=== PATIENT | male | born 1955 | race Caucasian/White ===

== ENCOUNTER 2025-02-26 01:26 | Inpatient (IN) ==
--- NOTE | 2025-02-26 01:40 | Emergency Department Note ---
History of Present Illness General Chief complaint: Altered Mental Status Stated complaint: AMS Time Seen by Provider: 02/26/25 01:28 History of Present Illness This is a 69-year-old male presenting to the emergency department via EMS for evaluation of altered mental status and violent behavior at home. The patient has a history of Lewy body dementia and prostate cancer with chronic indwelling Fontanez catheter. The patient is typically cared for at home by his brothers, however the past 5 or 6 days the patient has had more aggressive behavior and is attempting to remove his Fontanez catheter. Patient has not had distinct fevers or chills. He seems to be different from his normal baseline according to EMS and prehospital. Patient himself complains only of pain at the end of his penis where his catheter is. History is somewhat limited. No report of injury or trauma. Discomfort is rated 2/10 Home Medications Medication Instructions Recorded Confirmed Type famotidine 20 mg tablet (Pepcid) 20 mg PO BID PRN Heartburn 09/30/18 02/26/25 History omega 6-lxd-aiv-fish oil 1,000 mg 3 cap PO QAM 09/30/18 02/26/25 History (120 mg-180 mg) capsule (Fish Oil) polyethylene glycol 3350 17 gram 17 g PO DAILY PRN Constipation 09/30/18 02/26/25 History oral powder packet (Miralax) tamsulosin 0.4 mg capsule 0.4 mg PO DAILY 01/25/21 02/26/25 History pimavanserin 34 mg capsule 34 mg PO DAILY 10/28/24 02/26/25 History calcium 600 mg (as 1 tab PO QAM 01/29/25 02/26/25 History carbonate)-vitamin D3 10 mcg (400 unit) tablet (Calcium 600 + D(3)) psyllium husk 3.4 gram/5.4 gram 1 tbsp PO DAILY 02/01/25 02/26/25 History oral powder (Metamucil) melatonin 10 mg capsule 10 mg PO HS PRN Sleep 02/15/25 02/26/25 History leuprolide (3 month) 22.5 mg (3 22.5 mg subcut ONCE #1 ea 02/25/25 02/26/25 Rx month) subcutaneous syringe Allergies Allergy/AdvReac Type Severity Reaction Status Date / Time aspirin AdvReac Intermediate Nose Bleed Verified 02/22/25 10:28 naproxen AdvReac Intermediate BLEEDING Verified 02/22/25 10:28 FROM RECTUM Past Med/Surg History Problem List (Updated 02/26/25 @ 05:00 by Ronald Gibson MD) AMS (altered mental status) Irritation of urethral meatus (Acute) Disorder of urethral catheter (Acute) Dysuria Prostate cancer (Chronic 09/28/24) Elevated PSA BPH NOS w ur obs/LUTS COVID-19 Pneumonia due to COVID-19 virus GERD (gastroesophageal reflux disease) Hyperlipidemia Medical History BPH (benign prostatic hyperplasia) Surgical History H/O prostate biopsy History of cataract surgery LEFT. 10/07/2018. 2mg versed. no issues. Status post trigger finger release RT History of carpal tunnel release of both wrists History of colonoscopy Family History Father Family history of diabetes mellitus Mother Family history of diabetes mellitus Brother Cancer Prostate Social History Smoking Status: Former smoker Tobacco Type: Cigarettes and Smokeless Tobacco (Dip or Chew) Second Hand Exposure: No; Do You Dip or Chew Tobacco: No; Hx Alcohol Use: No Hx Substance Use: No Preferred Language: Pashto Communication Ability: Effective Visual Impairment: No Limitations Hearing Ability: Hard of Hearing Information Tech Required: No Beliefs That Will Affect Care: None marital status: Single Current Living Situation: Family Current Living Situation Comment: lives with brother Feels Safe at Home: Yes Diet: regular during the past year weight has: remained stable Assistive Devices: Hearing Aid - Bilateral Review of Systems A total of 10 systems reviewed and were otherwise negative (Somewhat limited secondary to patient's status.) Physical Exam Vital Signs Vital Signs - 24 hr 02/26/25 01:36 02/26/25 01:45 02/26/25 01:51 Temperature 36.6 C Temperature Source Oral Pulse Rate 80 73 73 Pulse Rate [Apical] Pulse Rate from SpO2 Sensor Pulse Rhythm [Apical] Pulse Strength [Apical] Respiratory Rate 18 18 Respiratory Effort / Characteristics Non-Labored Spontaneous Respiratory Depth Normal Blood Pressure 146/106 H Blood Pressure [Right Arm] Blood Pressure Mean 119 Blood Pressure Mean [Right Arm] Pulse Oximetry 97 100 Oxygen Delivery Method Room Air Room Air Sepsis Recent Fever Within 48 Hours No Sepsis New/Unexplained Change in Mental Status No Sepsis Action Taken by Nursing No Action Required 02/26/25 02:04 02/26/25 02:56 02/26/25 03:00 Temperature Temperature Source Pulse Rate 70 Pulse Rate [Apical] 72 Pulse Rate from SpO2 Sensor 69 Pulse Rhythm [Apical] Regular Pulse Strength [Apical] Normal Respiratory Rate 18 14 Respiratory Effort / Characteristics Respiratory Depth Normal Blood Pressure 141/91 H Blood Pressure [Right Arm] 149/92 H Blood Pressure Mean 107 Blood Pressure Mean [Right Arm] 111 Pulse Oximetry 100 95 Oxygen Delivery Method Room Air Room Air Sepsis Recent Fever Within 48 Hours Sepsis New/Unexplained Change in Mental Status Sepsis Action Taken by Nursing 02/26/25 04:02 Temperature Temperature Source Pulse Rate 74 Pulse Rate [Apical] Pulse Rate from SpO2 Sensor Pulse Rhythm [Apical] Pulse Strength [Apical] Respiratory Rate 18 Respiratory Effort / Characteristics Respiratory Depth Blood Pressure 122/86 Blood Pressure [Right Arm] Blood Pressure Mean 88 Blood Pressure Mean [Right Arm] Pulse Oximetry 96 Oxygen Delivery Method Sepsis Recent Fever Within 48 Hours Sepsis New/Unexplained Change in Mental Status Sepsis Action Taken by Nursing VITALS: Vitals are noted on the nurse's note and reviewed by myself. Vital signs stable. GENERAL: White male who is mildly agitated HEAD: Normocephalic atraumatic. NECK: Supple without nuchal rigidity. No lymphadenopathy. No thyromegaly. Cervical spine is nontender. HEART: Regular rate and rhythm without murmurs gallops or rubs. LUNGS: Clear to auscultation bilaterally without wheezes, rales or rhonchi. No retractions or accessory muscle use. ABDOMEN: Positive normal bowel sounds x 4. Soft, nontender, without masses or organomegaly. No guarding or rebound tenderness. MUSCULOSKELETAL: No muscle atrophy, erythema, or edema noted. Full range of motion in all extremities. No tenderness to palpation. NEURO: Patient was alert and oriented to person but not place or time Course Administered Medications Discontinued Medications Sodium Chloride (Nss) 1,000 mls @ 999 mls/hr IV .Q1H1M ONE Stop: 02/26/25 02:35 Last Infusion: 02/26/25 02:55 Dose: Infused Documented By: Admin: 02/26/25 01:54 Dose: 999 mls/hr Documented By: RAE Ceftriaxone Sodium (Rocephin) 2,000 mg in 50 mls @ 100 mls/hr IV NOW STA Stop: 02/26/25 04:00 Last Infusion: 02/26/25 04:36 Dose: Infused Documented By: Admin: 02/26/25 04:04 Dose: 100 mls/hr Documented By: SHANNON Lorazepam (Lorazepam 2 Mg/1 Ml Vial) 0.5 mg IV NOW STA Stop: 02/26/25 01:36 Last Admin: 02/26/25 02:28 Dose: 0.5 mg Documented By: LIZETH Medical Decision Making Differential Diagnosis Differential diagnosis: Etiologies such as viral syndrome, otitis, pharyngitis, pneumonia, influenza, meningitis, urinary tract infection, septic arthritis, soft tissue infectious process, intra-abdominal process, sepsis, bacteremia, as well as others were entertained. Laboratory Data 02/26/25 01:35 02/26/25 01:35 Lab Results 02/26/25 02/26/25 02/26/25 Range/Units 01:35 01:36 01:40 WBC 6.88 (4.8-10.8) K/ul RBC 4.24 L (4.70-6.10) M/uL Hgb 13.8 L (14.0-18.0) g/dl Hct 39.9 L (42.0-52.0) % MCV 94.1 (80.0-100.0) fL MCH 32.5 (25.0-34.0) pg MCHC 34.6 (32.0-36.0) g/dL RDW Std Deviation 43.3 (36.4-46.3) fL RDW Coeff of Keo 12.6 (11.5-14.5) % Plt Count 195 (130-400) K/uL MPV 9.1 L (9.4-12.4) fL Immature Gran % (Auto) 0.4 % Neut % (Auto) 74.9 % Lymph % (Auto) 8.7 % [place] % (Auto) 10.3 % Eos % (Auto) 4.8 % Baso % (Auto) 0.9 % Neut # (Auto) 5.15 (1.40-6.50) K/uL Lymph # (Auto) 0.60 L (1.20-3.40) K/uL [place] # (Auto) 0.71 H (0.11-0.59) K/uL Eos # (Auto) 0.33 (0.00-0.50) K/uL Baso # (Auto) 0.06 (0.00-0.20) K/uL Immature Gran # (Auto) 0.03 (0.01-0.20) K/uL Sodium 139 (136-145) mmol/L Potassium 4.2 (3.5-5.1) mmol/L Chloride 105 (98-107) mmol/L Carbon Dioxide 27 (21-32) mmol/L Anion Gap 7 (3-11) BUN 24 H (6-23) mg/dl Creatinine 1.16 (0.6-1.4) mg/dl Est Cr Clr Drug Dosing 70.7 ml/min eGFR 67.34 BUN/Creatinine Ratio 20.7 H (10-20) Glucose 108 H (70-99(Fasting)) mg/dl Lactate 1.1 (0.4-2.0) mmol/L Calcium 9.4 (8.6-10.3) mg/dl Magnesium 2.4 (1.7-2.4) mg/dl Total Bilirubin 0.5 (0.2-1.0) mg/dl AST 21 (13-39) U/L ALT 22 (7-52) U/L Alkaline Phosphatase 50 (34-104) U/L Ammonia (18-72) umol/L Troponin I High Sens 4.3 (0-20) pg/ml Total Protein 7.0 (6.0-8.3) gm/dl Albumin 4.1 (3.4-5.0) gm/dl Globulin 2.9 (2.5-4.0) gm/dl Albumin/Globulin Ratio 1.4 (0.9-2) Lipase 31 (11-82) U/L Urine Color Urine Appearance (Clear) Urine pH (4.5-7.5) Ur Specific [place] (1.000-1.030) Urine Protein (Negative) Urine Glucose (UA) (Negative) Urine Ketones (Negative) Urine Blood (Negative) Urine Nitrite (Negative) Urine Bilirubin (Negative) Urine Urobilinogen (Negative) Ur Leukocyte Esterase (Negative) Urine WBC (Auto) (0-5) /hpf Urine RBC (Auto) (0-2) /hpf U Hyaline Cast (Auto) (0-2) /lpf U Epithel Cells (Auto) (0-2) /hpf Urine Bacteria (Auto) (None Seen) Urine Comment Ethyl Alcohol mg/dL < 10.0 (<10.0) mg/dl 02/26/25 02/26/25 Range/Units 01:52 01:58 WBC (4.8-10.8) K/ul RBC (4.70-6.10) M/uL Hgb (14.0-18.0) g/dl Hct (42.0-52.0) % MCV (80.0-100.0) fL MCH (25.0-34.0) pg MCHC (32.0-36.0) g/dL RDW Std Deviation (36.4-46.3) fL RDW Coeff of Keo (11.5-14.5) % Plt Count (130-400) K/uL MPV (9.4-12.4) fL Immature Gran % (Auto) % Neut % (Auto) % Lymph % (Auto) % [place] % (Auto) % Eos % (Auto) % Baso % (Auto) % Neut # (Auto) (1.40-6.50) K/uL Lymph # (Auto) (1.20-3.40) K/uL [place] # (Auto) (0.11-0.59) K/uL Eos # (Auto) (0.00-0.50) K/uL Baso # (Auto) (0.00-0.20) K/uL Immature Gran # (Auto) (0.01-0.20) K/uL Sodium (136-145) mmol/L Potassium (3.5-5.1) mmol/L Chloride (98-107) mmol/L Carbon Dioxide (21-32) mmol/L Anion Gap (3-11) BUN (6-23) mg/dl Creatinine (0.6-1.4) mg/dl Est Cr Clr Drug Dosing ml/min eGFR BUN/Creatinine Ratio (10-20) Glucose (70-99(Fasting)) mg/dl Lactate (0.4-2.0) mmol/L Calcium (8.6-10.3) mg/dl Magnesium (1.7-2.4) mg/dl Total Bilirubin (0.2-1.0) mg/dl AST (13-39) U/L ALT (7-52) U/L Alkaline Phosphatase (34-104) U/L Ammonia 29.0 (18-72) umol/L Troponin I High Sens (0-20) pg/ml Total Protein (6.0-8.3) gm/dl Albumin (3.4-5.0) gm/dl Globulin (2.5-4.0) gm/dl Albumin/Globulin Ratio (0.9-2) Lipase (11-82) U/L Urine Color [place] Urine Appearance Cloudy A (Clear) Urine pH 6.5 (4.5-7.5) Ur Specific [place] 1.017 (1.000-1.030) Urine Protein 3+ H (Negative) Urine Glucose (UA) Negative (Negative) Urine Ketones Negative (Negative) Urine Blood 3+ H (Negative) Urine Nitrite Negative (Negative) Urine Bilirubin Negative (Negative) Urine Urobilinogen Negative (Negative) Ur Leukocyte Esterase 2+ H (Negative) Urine WBC (Auto) >50 H (0-5) /hpf Urine RBC (Auto) >20 H (0-2) /hpf U Hyaline Cast (Auto) 3-5 H (0-2) /lpf U Epithel Cells (Auto) 0-2 (0-2) /hpf Urine Bacteria (Auto) None Seen (None Seen) Urine Comment Ethyl Alcohol mg/dL (<10.0) mg/dl MDM Narrative Physical exam and history were performed. Nursing notes, EMR, and Medication List were personally reviewed. No social concerns were identified as barriers to patients care. History was provided by the Patient, EMS, and family who did ultimately arrive at bedside. Patient appears to have altered mental status in the context of having a chronic indwelling Fontanez catheter with baseline dementia. Patient is somewhat agitated on arrival. He does attempt to answer questions, however he does not give answers with any meaning. IV access was established and labs were obtained. Patient was given a small dose of IV Ativan and IV fluids. We did exchange his Fontanez catheter and sent a new urine sample from the new Fontanez bag to the lab for testing. Patient's blood work is as above and was reviewed. He does not have a significantly elevated white blood cell count, gross anemia, bandemia, or significant electrolyte imbalance. Lipase and transaminases not diagnostic. Magnesium and ammonia are not diagnostic. Urine is highly suggestive of infection. I did review old cultures and previous antibiotic use, and will start the patient on IV Rocephin here in the ER. Escalation of care was considered, and felt to be necessary. Case was discussed with my attending. The patient's family did arrive at bedside, and they seem to describe some worsening dementia symptoms over the past several days. This may be from the UTI, and they are having difficulty with him at home. Case was discussed with the on-call hospitalist team who agreed to evaluate the patient here in the ER. Please see their dictation for further patient course, plan, disposition. The chart was completed utilizing [employer] Speech Voice Recognition Software. Grammatical errors, random word insertions, pronoun errors, and incomplete sentences are an occasional consequence of this system due to software limitations, ambient noise, and hardware issues. Any formal questions or concerns about the content, text, or information contained within the body of this dictation should be directly addressed to the provider for clarification. Impression & Plan AMS (altered mental status), Acute UTI Discharge Plan Visit Data Chief Complaint: Altered Mental Status Stated Complaint: AMS ED Provider: Ga Woodward ED Midlevel Provider: Mickey Joaquin Discharge Problem: AMS (altered mental status), Acute UTI Patient Disposition: Being Evaluated by Hospitalist Condition: Fair Forms Stand Alone Forms: My [facility] Prescriptions Prescriptions: No Action pimavanserin 34 mg capsule 34 mg PO DAILY leuprolide (3 month) 22.5 mg syringe 22.5 mg subcut ONCE Qty: 1 0RF Rx Instructions: C61. Appt on 03/09/25 Metamucil 3.4 gram/5.4 gram powder 1 tbsp PO DAILY Rx Instructions: mix into at least 8 oz of water or juice before administering melatonin 10 mg capsule 10 mg PO HS PRN (Reason: Sleep) polyethylene glycol 3350 [Miralax] 17 gram Powder In Packet 17 g PO DAILY PRN (Reason: Constipation) famotidine [Pepcid] 20 mg Tablet 20 mg PO BID PRN (Reason: Heartburn) omega 1-jwi-ahv-fish oil [Fish Oil] 1,000 mg (120 mg-180 mg) Capsule 3 cap PO QAM tamsulosin 0.4 mg capsule 0.4 mg PO DAILY calcium carbonate-vitamin D3 [Calcium 600 + D(3)] 600 mg-10 mcg (400 unit) Tablet 1 tab PO QAM Referrals Referrals: Chema Lackey MD [Primary Care Provider] -
[2025-02-26] MEDS: SODIUM CHLORIDE 0.9% 1,000 ML IV ONE (01:54)
[2025-02-26 01:55] LABS: Hematocrit (blood only) 39.9 % (42.0-52.0); Hemoglobin 13.8 g/dl (14.0-18.0); Immature Granulocytes # (auto) 0.03 K/uL (0.01-0.20); Immature Granulocytes % (auto) 0.4 %; Mean Corpuscular Hemoglobin 32.5 pg (25.0-34.0); Mean Corpuscular Volume 94.1 fL (80.0-100.0); Platelet Count 195 K/uL (130-400); RDW Standard Deviation 43.3 fL (36.4-46.3); Red Blood Count 4.24 M/uL (4.70-6.10); White Blood Count 6.88 K/ul (4.8-10.8)
[2025-02-26 02:14] LABS: Alanine Aminotransferase 22.0 U/L (7-52); Albumin Globulin Ratio 1.4 (0.9-2); Alkaline Phosphatase 50.0 U/L (34-104); Anion Gap 7.0 (3-11); Bilirubin,Total 0.5 mg/dl (0.2-1.0); Blood Urea Nitrogen 24.0 mg/dl (6-23); Calcium 9.4 mg/dl (8.6-10.3); Carbon Dioxide 27.0 mmol/L (21-32); Chloride 105.0 mmol/L (98-107); Creatinine Clr Calc Pharmacy 70.7 ml/min; Globulin 2.9 gm/dl (2.5-4.0); Glucose 108.0 mg/dl (70-99(Fasting)); Lipase 31.0 U/L (11-82); Magnesium 2.4 mg/dl (1.7-2.4); Potassium 4.2 mmol/L (3.5-5.1); Sodium 139.0 mmol/L (136-145); Total Protein 7.0 gm/dl (6.0-8.3)
[2025-02-26 03:25] LABS: Appearance Urine Cloudy (Clear); Bacteria Urine Automated None Seen (None Seen); Epithelial Cell Urine Auto 0-2 /hpf (0-2); Glucose Urine UA Negative (Negative); RBC Urine Automated >20 /hpf (0-2); WBC Urine Automated >50 /hpf (0-5)
[2025-02-26] MEDS: cefTRIAXone SODIUM 2,000 MG/50 ML BAG IV STA (04:04)
--- NOTE | 2025-02-26 04:55 | History & Physical Report ---
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 Patient was diagnosed with prostate cancer and completed radiation treatment last Saturday as per brother. As per brother patient for last 6 days was not sleeping. Patient is trying to to get up from the bed frequently and trying to pull out the Fontanez catheter . Somewhat getting agitated. This reason patient was brought to the ER. In the ER received IV Ativan. Currently patient is pleasant. Patient knows that he is in the [facility]. Knows current month and year. Could tell his name. Two brothers in the room. Brother says when the patient is with them he gets agitated and angry but in the the hospital he seems to be calmer now. No recent fevers. His appetite is okay. Patient denies any chest pain. Denies abdominal pain. Denies back pain. Denies headache. No runny nose or sore throat. No nausea. Fontanez catheter bag somewhat pink-colored. Brother says sometimes he passes clots in the urine but urine mostly is yellow or clear. Ambulates wit hout support. Hemodynamics are okay. Altered mental status Most from UTI Empiric Rocephin Will follow cultures Gentle fluids for 1 L Severe Lewy body dementia with psychotic disturbance At home patient seems to getting agitated Currently pleasant and oriented x 3 Continues home medication pimavanserin IV Zyprexa as needed for agitation Prostate cancer Follows with urology Completed radiation treatment On Lupron shots On Flomax On Fontanez catheter Fontanez care Slightly pinkish color urine If not cleared will consult urology Obstructive sleep apnea Not using CPAP History of hypertension Seems currently not on meds We will monitor Constipation On Metamucil MiraLAX as needed DVT prophylaxis Lovenox Disposition Medical floor CODE STATUS DNR as per brother but he thinks he wanted to try for 24 hours. Will keep full code for now Addendum; Later again patient was ordered Ativan by Er. As he was still agitated gave a dose of im zyprexa 2.5mg. 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 Patient was diagnosed with prostate cancer and completed radiation treatment last Saturday as per brother. As per brother patient for last 6 days was not sleeping. Patient is trying to to get up from the bed frequently and trying to pull out the Fontanez catheter . Somewhat getting agitated. This reason patient was brought to the ER. In the ER received IV Ativan. Currently patient is pleasant. Patient knows that he is in the [facility]. Knows current month and year. Could tell his name. Two brothers in the room. Brother says when the patient is with them he gets agitated and angry but in the the hospital he seems to be calmer now. No recent fevers. His appetite is okay. Patient denies any chest pain. Denies abdominal pain. Denies back pain. Denies headache. No runny nose or sore throat. No nausea. Fontanez catheter bag somewhat pink-colored. Brother says sometimes he passes clots in the urine but urine mostly is yellow or clear. Ambulates without support. Hemodynamics are okay. Past medical history. As mentioned above. Past surgical history. Carpal tunnel surgery. Colonoscopy. Social history. Quit smoking in 1995. Quit alcohol 1995. No drug use. Family history. Mother had lung cancer. Diabetes. CABG. Brother had myotonic dystrophy. Sister had myotonic dystrophy. Father had stroke. Diabetes. Maternal grandfather had diabetes. Maternal grandmother had diabetes. Allergies Allergy/AdvReac Type Severity Reaction Status Date / Time aspirin AdvReac Intermediate Nose Bleed Verified 02/22/25 10:28 naproxen AdvReac Intermediate BLEEDING Verified 02/22/25 10:28 FROM RECTUM Home Medications Medication Instructions Recorded Confirmed Type famotidine 20 mg tablet (Pepcid) 20 mg PO BID PRN Heartburn 09/30/18 02/26/25 History omega 2-nmh-ymi-fish oil 1,000 mg 3 cap PO QAM 09/30/18 02/26/25 History (120 mg-180 mg) capsule (Fish Oil) polyethylene glycol 3350 17 gram 17 g PO DAILY PRN Constipation 09/30/18 02/26/25 History oral powder packet (Miralax) tamsulosin 0.4 mg capsule 0.4 mg PO DAILY 01/25/21 02/26/25 History pimavanserin 34 mg capsule 34 mg PO DAILY 10/28/24 02/26/25 History calcium 600 mg (as 1 tab PO QAM 01/29/25 02/26/25 History carbonate)-vitamin D3 10 mcg (400 unit) tablet (Calcium 600 + D(3)) psyllium husk 3.4 gram/5.4 gram 1 tbsp PO DAILY 02/01/25 02/26/25 History oral powder (Metamucil) melatonin 10 mg capsule 10 mg PO HS PRN Sleep 02/15/25 02/26/25 History leuprolide (3 month) 22.5 mg (3 22.5 mg subcut ONCE #1 ea 02/25/25 02/26/25 Rx month) subcutaneous syringe Past Med/Surg History Problem List (Updated 02/26/25 @ 05:00 by Ronald Gibson MD) AMS (altered mental status) Irritation of urethral meatus (Acute) Disorder of urethral catheter (Acute) Dysuria Prostate cancer (Chronic 09/28/24) Elevated PSA BPH NOS w ur obs/LUTS COVID-19 Pneumonia due to COVID-19 virus GERD (gastroesophageal reflux disease) Hyperlipidemia Medical History BPH (benign prostatic hyperplasia) Surgical History H/O prostate biopsy History of cataract surgery LEFT. 10/07/2018. 2mg versed. no issues. Status post trigger finger release RT History of carpal tunnel release of both wrists History of colonoscopy Family History Father Family history of diabetes mellitus Mother Family history of diabetes mellitus Brother Cancer Prostate Social History Smoking Status: Former smoker Tobacco Type: Cigarettes and Smokeless Tobacco (Dip or Chew) Second Hand Exposure: No; Do You Dip or Chew Tobacco: No; Hx Alcohol Use: No Hx Substance Use: No Preferred Language: Sammarinese Communication Ability: Effective Visual Impairment: No Limitations Hearing Ability: Hard of Hearing Athletic Training Internship Required: No Beliefs That Will Affect Care: None marital status: Single Current Living Situation: Family Current Living Situation Comment: lives with brother Feels Safe at Home: Yes Diet: regular during the past year weight has: remained stable Assistive Devices: Hearing Aid - Bilateral Review of Systems Review of Systems: All systems reviewed & are unremarkable except as noted in HPI & below Physical Exam Physical Exam: General- Not in distress Head- atraumatic Eyes- PERRL. ENT- oropharynx clear Neck- supple, no JVD. Lungs- clear to auscultation no wheezing or crackles. Heart- regular rhythm; no murmur, no gallop. Abdomen- normal bowel sounds, soft, nontender, no distension Extremities- no pretibial edema, no erythema seen Neuro- alert, oriented x 3; PERRL, no facial palsy; no dysarthria; moves extremities Results & Data Results & Data Vital Signs (Past 12 Hours) Vital Signs Temp Pulse Pulse Resp BP BP Pulse Ox 02/26/25 04:02 74 18 122/86 96 02/26/25 03:00 70 14 141/91 H 95 02/26/25 02:56 72 18 149/92 H 100 02/26/25 02:04 02/26/25 01:51 73 18 100 02/26/25 01:45 36.6 C 73 18 146/106 H 97 02/26/25 01:36 80 O2 Del Method 02/26/25 04:02 02/26/25 03:00 02/26/25 02:56 Room Air 02/26/25 02:04 Room Air 02/26/25 01:51 Room Air 02/26/25 01:45 Room Air 02/26/25 01:36 Diagnostic Findings Laboratory Results WBC 6.88 K/ul (4.8-10.8) 02/26/25 01:35 RBC 4.24 M/uL (4.70-6.10) L 02/26/25 01:35 Hgb 13.8 g/dl (14.0-18.0) L 02/26/25 01:35 Hct 39.9 % (42.0-52.0) L 02/26/25 01:35 MCV 94.1 fL (80.0-100.0) 02/26/25 01:35 MCH 32.5 pg (25.0-34.0) 02/26/25 01:35 MCHC 34.6 g/dL (32.0-36.0) 02/26/25 01:35 RDW Std Deviation 43.3 fL (36.4-46.3) 02/26/25 01:35 RDW Coeff of Keo 12.6 % (11.5-14.5) 02/26/25 01:35 Plt Count 195 K/uL (130-400) 02/26/25 01:35 MPV 9.1 fL (9.4-12.4) L 02/26/25 01:35 Immature Gran % (Auto) 0.4 % 02/26/25 01:35 Neut % (Auto) 74.9 % 02/26/25 01:35 Lymph % (Auto) 8.7 % 02/26/25 01:35 [place] % (Auto) 10.3 % 02/26/25 01:35 Eos % (Auto) 4.8 % 02/26/25 01:35 Baso % (Auto) 0.9 % 02/26/25 01:35 Neut # (Auto) 5.15 K/uL (1.40-6.50) 02/26/25 01:35 Lymph # (Auto) 0.60 K/uL (1.20-3.40) L 02/26/25 01:35 [place] # (Auto) 0.71 K/uL (0.11-0.59) H 02/26/25 01:35 Eos # (Auto) 0.33 K/uL (0.00-0.50) 02/26/25 01:35 Baso # (Auto) 0.06 K/uL (0.00-0.20) 02/26/25 01:35 Immature Gran # (Auto) 0.03 K/uL (0.01-0.20) 02/26/25 01:35 Sodium 139 mmol/L (136-145) 02/26/25 01:35 Potassium 4.2 mmol/L (3.5-5.1) 02/26/25 01:35 Chloride 105 mmol/L (98-107) 02/26/25 01:35 Carbon Dioxide 27 mmol/L (21-32) 02/26/25 01:35 Anion Gap 7 (3-11) 02/26/25 01:35 BUN 24 mg/dl (6-23) H 02/26/25 01:35 Creatinine 1.16 mg/dl (0.6-1.4) 02/26/25 01:35 Est Cr Clr Drug Dosing 70.7 ml/min 02/26/25 01:35 eGFR 67.34 02/26/25 01:35 BUN/Creatinine Ratio 20.7 (10-20) H 02/26/25 01:35 Glucose 108 mg/dl (70-99(Fasting)) H 02/26/25 01:35 Lactate 1.1 mmol/L (0.4-2.0) 02/26/25 01:40 Calcium 9.4 mg/dl (8.6-10.3) 02/26/25 01:35 Magnesium 2.4 mg/dl (1.7-2.4) 02/26/25 01:35 Total Bilirubin 0.5 mg/dl (0.2-1.0) 02/26/25 01:35 AST 21 U/L (13-39) 02/26/25 01:35 ALT 22 U/L (7-52) 02/26/25 01:35 Alkaline Phosphatase 50 U/L (34-104) 02/26/25 01:35 Ammonia 29.0 umol/L (18-72) 02/26/25 01:58 Troponin I High Sens 4.3 pg/ml (0-20) 02/26/25 01:35 Total Protein 7.0 gm/dl (6.0-8.3) 02/26/25 01:35 Albumin 4.1 gm/dl (3.4-5.0) 02/26/25 01:35 Globulin 2.9 gm/dl (2.5-4.0) 02/26/25 01:35 Albumin/Globulin Ratio 1.4 (0.9-2) 02/26/25 01:35 Lipase 31 U/L (11-82) 02/26/25 01:35 Urine Color [place] 02/26/25 01:52 Urine Appearance Cloudy (Clear) A 02/26/25 01:52 Urine pH 6.5 (4.5-7.5) 02/26/25 01:52 Ur Specific [place] 1.017 (1.000-1.030) 02/26/25 01:52 Urine Protein 3+ (Negative) H 02/26/25 01:52 Urine Glucose (UA) Negative (Negative) 02/26/25 01:52 Urine Ketones Negative (Negative) 02/26/25 01:52 Urine Blood 3+ (Negative) H 02/26/25 01:52 Urine Nitrite Negative (Negative) 02/26/25 01:52 Urine Bilirubin Negative (Negative) 02/26/25 01:52 Urine Urobilinogen Negative (Negative) 02/26/25 01:52 Ur Leukocyte Esterase 2+ (Negative) H 02/26/25 01:52 Urine WBC (Auto) >50 /hpf (0-5) H 02/26/25 01:52 Urine RBC (Auto) >20 /hpf (0-2) H 02/26/25 01:52 U Hyaline Cast (Auto) 3-5 /lpf (0-2) H 02/26/25 01:52 U Epithel Cells (Auto) 0-2 /hpf (0-2) 02/26/25 01:52 Urine Bacteria (Auto) None Seen (None Seen) 02/26/25 01:52 Urine Comment 02/26/25 01:52 Ethyl Alcohol mg/dL < 10.0 mg/dl (<10.0) 02/26/25 01:36 ECG Additional Comments: ECG. Normal sinus rhythm rate of 73. No significant change was found. Code Status & VTE Plan VTE Prophylaxis Plan VTE Prophylaxis will be ordered: Yes
[2025-02-26 09:13] LABS: Hematocrit (blood only) 40.2 % (42.0-52.0); Hemoglobin 13.9 g/dl (14.0-18.0); Immature Granulocytes # (auto) 0.03 K/uL (0.01-0.20); Immature Granulocytes % (auto) 0.4 %; Mean Corpuscular Hemoglobin 32.6 pg (25.0-34.0); Mean Corpuscular Volume 94.1 fL (80.0-100.0); Platelet Count 189 K/uL (130-400); RDW Standard Deviation 42.8 fL (36.4-46.3); Red Blood Count 4.27 M/uL (4.70-6.10); White Blood Count 8.36 K/ul (4.8-10.8)
[2025-02-26 09:28] LABS: Anion Gap 6.0 (3-11); Blood Urea Nitrogen 17.0 mg/dl (6-23); Calcium 8.8 mg/dl (8.6-10.3); Carbon Dioxide 28.0 mmol/L (21-32); Chloride 108.0 mmol/L (98-107); Creatinine Clr Calc Pharmacy 91.2 ml/min; Glucose 103.0 mg/dl (70-99(Fasting)); Magnesium 2.2 mg/dl (1.7-2.4); Potassium 3.8 mmol/L (3.5-5.1); Sodium 142.0 mmol/L (136-145)
[2025-02-26] MEDS: SODIUM CHLORIDE 0.9% 1,000 ML IV SCH (09:42)
[2025-02-26] MEDS: PIMAVANSERIN TARTRATE PO SCH (09:43)
[2025-02-26] MEDS: TAMSULOSIN HCL 0.4 MG CAP PO SCH (09:43)
[2025-02-26] MEDS: CALCIUM 600MG + VIT D 400 IU TAB PO SCH (09:43)
[2025-02-26] MEDS: PSYLLIUM HUSK 4GM PACKET PO SCH (10:40)
--- NOTE | 2025-02-26 15:58 | Communication Note ---
Date of Service: February 26, 2025 The patient was seen and examined in emergency room. He was admitted with change in mental status likely secondary to UTI and is complicated by dementia and also prostate cancer with in situ Fontanez catheter status. He required IM Zyprexa and also dose of Ativan in the emergency room and during my examination remained confused. Remains hemodynamically stable and is afebrile with unremarkable systemic examination. Will have full progress note tomorrow. Dr Mariela Cesar
[2025-02-26] MEDS: ACETAMINOPHEN 325 MG TAB PO PRN (21:20)
[2025-02-26] MEDS: MELATONIN 3 MG TAB PO PRN (21:20)
--- NOTE | 2025-02-26 22:46 | Electrocardiogram Report ---
Test Reason : Blood Pressure : */* mmHG Vent. Rate : 73 BPM Atrial Rate : 73 BPM P-R Int : 186 ms QRS Dur : 84 ms QT Int : 400 ms P-R-T Axes : 76 11 46 degrees QTcB Int : 440 ms Normal sinus rhythm Normal ECG When compared with ECG of 25-Jan-2021 21:09, No significant change was found Confirmed by Hong Carlson ([id number]) on 02/26/2025 10:45:56 PM Referred By: REFERRED SELF Confirmed By: Hong Carlson
[2025-02-27] MEDS: cefTRIAXone SODIUM 2,000 MG/50 ML BAG IV SCH (03:01)
[2025-02-27 08:11] LABS: Hematocrit (blood only) 41.3 % (42.0-52.0); Hemoglobin 14.6 g/dl (14.0-18.0); Immature Granulocytes # (auto) 0.03 K/uL (0.01-0.20); Immature Granulocytes % (auto) 0.4 %; Mean Corpuscular Hemoglobin 32.8 pg (25.0-34.0); Mean Corpuscular Volume 92.8 fL (80.0-100.0); Platelet Count 206 K/uL (130-400); RDW Standard Deviation 41.9 fL (36.4-46.3); Red Blood Count 4.45 M/uL (4.70-6.10); White Blood Count 7.23 K/ul (4.8-10.8)
[2025-02-27 08:26] LABS: Anion Gap 7.0 (3-11); Blood Urea Nitrogen 14.0 mg/dl (6-23); Calcium 9.1 mg/dl (8.6-10.3); Carbon Dioxide 25.0 mmol/L (21-32); Chloride 107.0 mmol/L (98-107); Creatinine Clr Calc Pharmacy 97.7 ml/min; Glucose 106.0 mg/dl (70-99(Fasting)); Potassium 3.9 mmol/L (3.5-5.1); Sodium 139.0 mmol/L (136-145)
--- NOTE | 2025-02-27 14:49 | Hospitalist Progress Note ---
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 Patient was diagnosed with prostate cancer and completed radiation treatment last Saturday as per brother. As per brother patient for last 6 days was not sleeping. Patient is trying to to get up from the bed frequently and trying to pull out the Fontanez catheter . Somewhat getting agitated. This reason patient was brought to the ER. In the ER received IV Ativan. Currently patient is pleasant. Patient knows that he is in the [facility]. Knows current month and year. Could tell his name. Two brothers in the room. Brother says when the patient is with them he gets agitated and angry but in the the hospital he seems to be calmer now. No recent fevers. His appetite is okay. Patient denies any chest pain. Denies abdominal pain. Denies back pain. Denies headache. No runny nose or sore throat. No nausea. Fontanez catheter bag somewhat pink-colored. Brother says sometimes he passes clots in the urine but urine mostly is yellow or clear. Ambulates wit hout support. Hemodynamics are okay. Altered mental status Most from UTI complicated by lack of sleep for the last 6 days and possible injury to the Fontanez Empiric Rocephin Will follow cultures-urine culture is growing Staphylococcus aureus likely contaminant Will continue IV Rocephin for about 3 days Gentle fluids for 1 L Clinically better with decreasing agitation and remains pleasantly confused Severe Lewy body dementia with psychotic disturbance At home patient seems to getting agitated Currently pleasant and oriented x 3 Continues home medication pimavanserin IV Zyprexa as needed for agitation No more agitation Prostate cancer Follows with urology Completed radiation treatment On Lupron shots On Flomax On Fontanez catheter Fontanez care Slightly pinkish color urine If not cleared will consult urology-urine is clearing up and the patient was advised to drink more fluid Obstructive sleep apnea Not using CPAP No shortness of breath at rest History of hypertension Seems currently not on meds We will monitor Constipation On Metamucil MiraLAX as needed DVT prophylaxis Lovenox Disposition Medical floor CODE STATUS DNR as per brother but he thinks he wanted to try for 24 hours. Wi ll keep full code for now Admission and Anticipated Discharge Date Admission Date: February 26, 2025 Subjective 02/27/2025 The patient was seen and examined in medical floor He remains pleasantly confused but does not have any agitation as was noted yesterday Bed without any acute distress Review of Systems Review of Systems: Unobtainable due to cognitive status Physical Exam Physical Exam: Lying in bed without any acute distress remains pleasantly confused Constitutional: well developed, well nourished, + ill appearing and + obese Eyes: PERRL, conjunctivae normal, anicteric sclerae ENMT: external ear and nose normal, oropharynx normal Neck: trachea midline, no thyromegaly Respiratory: no respiratory distress Auscultation: lungs clear to auscultation bilaterally Cardiovascular: Rate/Rhythm: regular rate and regular rhythm; not tachycardic Heart Sounds: normal S1 and normal S2; no murmur Extremities: + edema (Trace edema bilaterally) Gastrointestinal (Abdomen): Inspection/Auscultation: normal bowel sounds; abdomen not distended Percussion/Palpation: abdomen soft; abdomen nontender Musculoskeletal: No acute arthritis involving any of the joint Neurologic: normal touch/pain/proprioception and moves all extremities; no focal motor deficits Lymphatic: no cervical or axillary lymphadenopathy Results & Data Results & Data Vital Signs (Past 12 Hours) Vital Signs Temp Pulse Resp BP Pulse Ox O2 Del Method 02/27/25 08:18 36.6 C 68 18 149/88 H 95 Room Air Laboratory Results Short CBC 02/27/25 Range/Units 07:38 WBC 7.23 (4.8-10.8) K/ul Hgb 14.6 (14.0-18.0) g/dl Hct 41.3 L (42.0-52.0) % Plt Count 206 (130-400) K/uL BMP 02/27/25 07:38 Sodium 139 Potassium 3.9 Chloride 107 Carbon Dioxide 25 BUN 14 Creatinine 0.84 Glucose 106 H Calcium 9.1 Medications Administered Current Inpatient Medications Acetaminophen (Acetaminophen 325 Mg Tab) 650 mg PO Q4H PRN PRN Reason: pain/fever Stop: 03/28/25 08:56 Last Admin: 02/27/25 14:01 Dose: 650 mg Calcium/Vitamin D (Calcium 600mg + Vit D 400 Iu Tab) 1 tab PO QAM EUGENE Stop: 03/28/25 08:59 Last Admin: 02/27/25 11:15 Dose: 1 tab Famotidine (Famotidine 20 Mg Tab) 20 mg PO BID PRN PRN Reason: Heartburn Stop: 03/28/25 08:56 Ceftriaxone Sodium (Rocephin) 2,000 mg in 50 mls @ 100 mls/hr IV Q24H EUGENE Stop: 03/09/25 03:59 Last Infusion: 02/27/25 03:31 Dose: Infused Melatonin (Melatonin 3 Mg Tab) 9 mg PO HSZ PRN PRN Reason: Sleep Stop: 03/28/25 09:08 Last Admin: 02/26/25 21:20 Dose: 9 mg Olanzapine (Olanzapine 10 Mg/2.1 Ml Sdv) 2.5 mg IM Q4H PRN PRN Reason: Agitation Stop: 03/28/25 08:56 Last Admin: 02/27/25 01:03 Dose: 2.5 mg Pimavanserin ( Non Formulary Pimavanserin Tartrate) 1 each PO DAILY EUGENE Stop: 03/28/25 09:29 Last Admin: 02/27/25 11:15 Dose: 1 each Polyethylene Glycol (Polyethylene (Miralax) 17 Gm Pack) 17 gm PO DAILY PRN PRN Reason: Constipation Stop: 03/28/25 08:56 Psyllium Hydrophilic Mucilloid (Psyllium Husk 4gm Packet) 4 gm PO DAILY EUGENE Stop: 03/28/25 09:14 Last Admin: 02/27/25 11:15 Dose: 4 gm Tamsulosin HCl (Tamsulosin Hcl 0.4 Mg Cap) 0.4 mg PO DAILY EUGENE Stop: 03/28/25 08:59 Last Admin: 02/27/25 11:15 Dose: 0.4 mg
[2025-02-28 06:13] LABS: Hematocrit (blood only) 42.6 % (42.0-52.0); Hemoglobin 14.5 g/dl (14.0-18.0); Immature Granulocytes # (auto) 0.02 K/uL (0.01-0.20); Immature Granulocytes % (auto) 0.3 %; Mean Corpuscular Hemoglobin 32.4 pg (25.0-34.0); Mean Corpuscular Volume 95.3 fL (80.0-100.0); Platelet Count 216 K/uL (130-400); RDW Standard Deviation 43.2 fL (36.4-46.3); Red Blood Count 4.47 M/uL (4.70-6.10); White Blood Count 7.09 K/ul (4.8-10.8)
[2025-02-28 06:34] LABS: Anion Gap 7.0 (3-11); Blood Urea Nitrogen 19.0 mg/dl (6-23); Calcium 9.3 mg/dl (8.6-10.3); Carbon Dioxide 28.0 mmol/L (21-32); Chloride 104.0 mmol/L (98-107); Creatinine Clr Calc Pharmacy 94.3 ml/min; Glucose 112.0 mg/dl (70-99(Fasting)); Magnesium 2.3 mg/dl (1.7-2.4); Potassium 3.8 mmol/L (3.5-5.1); Sodium 139.0 mmol/L (136-145)
[2025-02-28] MEDS: SULFAMETHOXAZOLE/TRIMETHOPRIM DS 800/160MG TAB PO ONE (11:25)
--- NOTE | 2025-02-28 13:51 | Hospitalist Progress Note ---
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 Patient was diagnosed with prostate cancer and completed radiation treatment last Saturday as per brother. As per brother patient for last 6 days was not sleeping. Patient is trying to to get up from the bed frequently and trying to pull out the Fontanez catheter . Somewhat getting agitated. This reason patient was brought to the ER. In the ER received IV Ativan. Currently patient is pleasant. Patient knows that he is in the [facility]. Knows current month and year. Could tell his name. Two brothers in the room. Brother says when the patient is with them he gets agitated and angry but in the the hospital he seems to be calmer now. No recent fevers. His appetite is okay. Patient denies any chest pain. Denies abdominal pain. Denies back pain. Denies headache. No runny nose or sore throat. No nausea. Fontanez catheter bag somewhat pink-colored. Brother says sometimes he passes clots in the urine but urine mostly is yellow or clear. Ambulates wit hout support. Hemodynamics are okay. Altered mental status Most from UTI complicated by lack of sleep for the last 6 days and possible injury to the Fontanez Empiric Rocephin Will follow cultures-urine culture is growing Staphylococcus aureus likely contaminant Will continue IV Rocephin for about 3 days Gentle fluids for 1 L Clinically better with decreasing agitation and remains pleasantly confused Remains confused but no agitation Urine culture came back positive for Staph aureus more than 100,000 colonies and sensitive to Bactrim Will discontinue Rocephin and start with Bactrim DS twice daily Monitor kidney function and electrolytes Severe Lewy body dementia with psychotic disturbance At home patient seems to getting agitated Currently pleasant and oriented x 3 Continues home medication pimavanserin IV Zyprexa as needed for agitation No more agitation-but remains confused Prostate cancer Follows with urology Completed radiation treatment On Lupron shots On Flomax On Fontanez catheter Fontanez care Slightly pinkish color urine If not cleared will consult urology-urine is clearing up and the patient was advised to drink more fluid Obstructive sleep apnea Not using CPAP No shortness of breath at rest History of hypertension Seems currently not on meds We will monitor Constipation On Metamucil MiraLAX as needed DVT prophylaxis Lovenox Disposition Medical floor CODE STATUS DNR as per brother but he thinks he wanted to try for 24 hours. Will keep full code for now Admission and Anticipated Discharge Date Admission Date: February 26, 2025 Subjective 02/27/2025 The patient was seen and examined in medical floor He remains pleasantly confused but does not have any agitation as was noted yesterday Bed without any acute distress 02/28/2025 The patient was seen and examined in medical floor He has been confused but does not have any agitation Does not seems to be in any other acute distress Review of Systems Review of Systems: Unobtainable due to cognitive status Physical Exam Physical Exam: Lying in bed without any acute distress remains pleasantly confused Constitutional: well developed, well nourished, + ill appearing and + obese Eyes: PERRL, conjunctivae normal, anicteric sclerae ENMT: external ear and nose normal, oropharynx normal Neck: trachea midline, no thyromegaly Respiratory: no respiratory distress Auscultation: lungs clear to auscultation bilaterally Cardiovascular: Rate/Rhythm: regular rate and regular rhythm; not tachycardic Heart Sounds: normal S1 and normal S2; no murmur Extremities: + edema (Trace edema bilaterally) Gastrointestinal (Abdomen): Inspection/Auscultation: normal bowel sounds; abdomen not distended Percussion/Palpation: abdomen soft; abdomen nontender Musculoskeletal: No acute arthritis involving any of the joint Neurologic: normal touch/pain/proprioception and moves all extremities; no focal motor deficits Lymphatic: no cervical or axillary lymphadenopathy Results & Data Results & Data Vital Signs (Past 12 Hours) Vital Signs Temp Pulse Resp BP Pulse Ox O2 Del Method 02/28/25 08:12 36.3 C L 86 18 129/86 95 Room Air Laboratory Results Short CBC 02/28/25 Range/Units 05:53 WBC 7.09 (4.8-10.8) K/ul Hgb 14.5 (14.0-18.0) g/dl Hct 42.6 (42.0-52.0) % Plt Count 216 (130-400) K/uL BMP 02/28/25 05:53 Sodium 139 Potassium 3.8 Chloride 104 Carbon Dioxide 28 BUN 19 Creatinine 0.87 Glucose 112 H Calcium 9.3 Medications Administered Current Inpatient Medications Acetaminophen (Acetaminophen 325 Mg Tab) 650 mg PO Q4H PRN PRN Reason: pain/fever Stop: 03/28/25 08:56 Last Admin: 02/27/25 21:11 Dose: 650 mg Calcium/Vitamin D (Calcium 600mg + Vit D 400 Iu Tab) 1 tab PO QAM EUGENE Stop: 03/28/25 08:59 Last Admin: 02/28/25 08:21 Dose: 1 tab Famotidine (Famotidine 20 Mg Tab) 20 mg PO BID PRN PRN Reason: Heartburn Stop: 03/28/25 08:56 Melatonin (Melatonin 3 Mg Tab) 9 mg PO HSZ PRN PRN Reason: Sleep Stop: 03/28/25 09:08 Last Admin: 02/27/25 21:12 Dose: 9 mg Olanzapine (Olanzapine 10 Mg/2.1 Ml Sdv) 2.5 mg IM Q4H PRN PRN Reason: Agitation Stop: 03/28/25 08:56 Last Admin: 02/27/25 23:26 Dose: 2.5 mg Pimavanserin ( Non Formulary Pimavanserin Tartrate) 1 each PO DAILY EUGENE Stop: 03/28/25 09:29 Last Admin: 02/28/25 08:21 Dose: 1 each Polyethylene Glycol (Polyethylene (Miralax) 17 Gm Pack) 17 gm PO DAILY PRN PRN Reason: Constipation Stop: 03/28/25 08:56 Psyllium Hydrophilic Mucilloid (Psyllium Husk 4gm Packet) 4 gm PO DAILY EUGENE Stop: 03/28/25 09:14 Last Admin: 02/28/25 08:22 Dose: 4 gm Tamsulosin HCl (Tamsulosin Hcl 0.4 Mg Cap) 0.4 mg PO DAILY EUGENE Stop: 03/28/25 08:59 Last Admin: 02/28/25 08:21 Dose: 0.4 mg Trimethoprim/Sulfamethoxazole (Sulfamethoxazole/Trimethoprim Ds 800/160mg Tab) 1 tab PO Q12 EUGENE Stop: 03/10/25 08:59
[2025-02-28] MEDS: SULFAMETHOXAZOLE/TRIMETHOPRIM DS 800/160MG TAB PO SCH (20:41)
[2025-03-01 08:00] LABS: Hematocrit (blood only) 41.5 % (42.0-52.0); Hemoglobin 14.4 g/dl (14.0-18.0); Immature Granulocytes # (auto) 0.02 K/uL (0.01-0.20); Immature Granulocytes % (auto) 0.3 %; Mean Corpuscular Hemoglobin 32.9 pg (25.0-34.0); Mean Corpuscular Volume 94.7 fL (80.0-100.0); Platelet Count 212 K/uL (130-400); RDW Standard Deviation 43.8 fL (36.4-46.3); Red Blood Count 4.38 M/uL (4.70-6.10); White Blood Count 5.90 K/ul (4.8-10.8)
[2025-03-01 08:27] LABS: Anion Gap 6.0 (3-11); Blood Urea Nitrogen 17.0 mg/dl (6-23); Calcium 9.1 mg/dl (8.6-10.3); Carbon Dioxide 28.0 mmol/L (21-32); Chloride 105.0 mmol/L (98-107); Creatinine Clr Calc Pharmacy 72.6 ml/min; Glucose 104.0 mg/dl (70-99(Fasting)); Potassium 3.8 mmol/L (3.5-5.1); Sodium 139.0 mmol/L (136-145)
--- NOTE | 2025-03-01 14:34 | Hospitalist Progress Note ---
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 Patient was diagnosed with prostate cancer and completed radiation treatment last Saturday as per brother. As per brother patient for last 6 days was not sleeping. Patient is trying to to get up from the bed frequently and trying to pull out the Fontanez catheter . Somewhat getting agitated. This reason patient was brought to the ER. In the ER received IV Ativan. Currently patient is pleasant. Patient knows that he is in the [facility]. Knows current month and year. Could tell his name. Two brothers in the room. Brother says when the patient is with them he gets agitated and angry but in the the hospital he seems to be calmer now. No recent fevers. His appetite is okay. Patient denies any chest pain. Denies abdominal pain. Denies back pain. Denies headache. No runny nose or sore throat. No nausea. Fontanez catheter bag somewhat pink-colored. Brother says sometimes he passes clots in the urine but urine mostly is yellow or clear. Ambulates wit hout support. Hemodynamics are okay. Altered mental status Most from UTI complicated by lack of sleep for the last 6 days and possible injury to the Fontanez Empiric Rocephin Will follow cultures-urine culture is growing Staphylococcus aureus likely contaminant Will continue IV Rocephin for about 3 days Gentle fluids for 1 L Clinically better with decreasing agitation and remains pleasantly confused Remains confused but no agitation Urine culture came back positive for Staph aureus more than 100,000 colonies and sensitive to Bactrim Will discontinue Rocephin and start with Bactrim DS twice daily Monitor kidney function and electrolytes Mental status seems to be at his baseline with confusion with history of dementia No behavioral disturbances and/or agitation Will continue treatment with Bactrim for 5-7 days Severe Lewy body dementia with psychotic disturbance At home patient seems to getting agitated Currently pleasant and oriented x 3 Continues home medication pimavanserin IV Zyprexa as needed for agitation No more agitation-but remains confused Prostate cancer Follows with urology Completed radiation treatment On Lupron shots On Flomax On Fontanez catheter Fontanez care Slightly pinkish color urine If not cleared will consult urology-urine is clearing up and the patient was advised to drink more fluid Obstructive sleep apnea Not using CPAP No shortness of breath at rest History of hypertension Seems currently not on meds We will monitor Constipation On Metamucil MiraLAX as needed DVT prophylaxis Lovenox Disposition Medical floor CODE STATUS DNR as per brother but he thinks he wanted to try for 24 hours. Will keep full code for now Admission and Anticipated Discharge Date Admission Date: February 26, 2025 Subjective 02/27/2025 The patient was seen and examined in medical floor He remains pleasantly confused but does not have any agitation as was noted yesterday Bed without any acute distress 02/28/2025 The patient was seen and examined in medical floor He has been confused but does not have any agitation Does not seems to be in any other acute distress 03/01/2025 The patient was seen and examined in medical floor He remains confused but does not have any aggressiveness or agitation Has been following commands reasonably and taking his medications and food Review of Systems Review of Systems: Unobtainable due to cognitive status Physical Exam Physical Exam: Lying in bed without any acute distress remains pleasantly confused Constitutional: well developed, well nourished, + ill appearing and + obese Eyes: PERRL, conjunctivae normal, anicteric sclerae ENMT: external ear and nose normal, oropharynx normal Neck: trachea midline, no thyromegaly Respiratory: no respiratory distress Auscultation: lungs clear to auscultation bilaterally Cardiovascular: Rate/Rhythm: regular rate and regular rhythm; not tachycardic Heart Sounds: normal S1 and normal S2; no murmur Extremities: + edema (Trace edema bilaterally) Gastrointestinal (Abdomen): Inspection/Auscultation: normal bowel sounds; abdomen not distended Percussion/Palpation: abdomen soft; abdomen nontender Neurologic: normal touch/pain/proprioception and moves all extremities; no focal motor deficits Lymphatic: no cervical or axillary lymphadenopathy Results & Data Results & Data Vital Signs (Past 12 Hours) Vital Signs Temp Pulse Pulse Resp BP BP Pulse Ox 03/01/25 13:28 36.6 C 82 20 129/78 94 03/01/25 07:23 36.4 C L 73 16 143/64 H 95 O2 Del Method 03/01/25 13:28 Room Air 03/01/25 07:23 Room Air Laboratory Results Short CBC 03/01/25 Range/Units 07:39 WBC 5.90 (4.8-10.8) K/ul Hgb 14.4 (14.0-18.0) g/dl Hct 41.5 L (42.0-52.0) % Plt Count 212 (130-400) K/uL BMP 03/01/25 07:39 Sodium 139 Potassium 3.8 Chloride 105 Carbon Dioxide 28 BUN 17 Creatinine 1.13 Glucose 104 H Calcium 9.1 Medications Administered Current Inpatient Medications Acetaminophen (Acetaminophen 325 Mg Tab) 650 mg PO Q4H PRN PRN Reason: pain/fever Stop: 03/28/25 08:56 Last Admin: 02/27/25 21:11 Dose: 650 mg Calcium/Vitamin D (Calcium 600mg + Vit D 400 Iu Tab) 1 tab PO QAM EUGENE Stop: 03/28/25 08:59 Last Admin: 03/01/25 09:07 Dose: 1 tab Famotidine (Famotidine 20 Mg Tab) 20 mg PO BID PRN PRN Reason: Heartburn Stop: 03/28/25 08:56 Melatonin (Melatonin 3 Mg Tab) 9 mg PO HSZ PRN PRN Reason: Sleep Stop: 03/28/25 09:08 Last Admin: 02/28/25 20:41 Dose: 9 mg Olanzapine (Olanzapine 10 Mg/2.1 Ml Sdv) 2.5 mg IM Q4H PRN PRN Reason: Agitation Stop: 03/28/25 08:56 Last Admin: 02/28/25 20:42 Dose: 2.5 mg Pimavanserin ( Non Formulary Pimavanserin Tartrate) 1 each PO DAILY EUGENE Stop: 03/28/25 09:29 Last Admin: 03/01/25 09:08 Dose: 1 each Polyethylene Glycol (Polyethylene (Miralax) 17 Gm Pack) 17 gm PO DAILY PRN PRN Reason: Constipation Stop: 03/28/25 08:56 Psyllium Hydrophilic Mucilloid (Psyllium Husk 4gm Packet) 4 gm PO DAILY EUGENE Stop: 03/28/25 09:14 Last Admin: 03/01/25 09:07 Dose: 4 gm Tamsulosin HCl (Tamsulosin Hcl 0.4 Mg Cap) 0.4 mg PO DAILY EUGENE Stop: 03/28/25 08:59 Last Admin: 03/01/25 09:07 Dose: 0.4 mg Trimethoprim/Sulfamethoxazole (Sulfamethoxazole/Trimethoprim Ds 800/160mg Tab) 1 tab PO Q12 EUGENE Stop: 03/10/25 08:59 Last Admin: 03/01/25 09:07 Dose: 1 tab
[2025-03-02] MEDS: OLANZAPINE 2.5 MG TAB PO STA ×2 (06:11→21:39)
[2025-03-02 09:06] LABS: Hematocrit (blood only) 44.8 % (42.0-52.0); Hemoglobin 15.6 g/dl (14.0-18.0); Immature Granulocytes # (auto) 0.03 K/uL (0.01-0.20); Immature Granulocytes % (auto) 0.4 %; Mean Corpuscular Hemoglobin 32.7 pg (25.0-34.0); Mean Corpuscular Volume 93.9 fL (80.0-100.0); Platelet Count 243 K/uL (130-400); RDW Standard Deviation 43.6 fL (36.4-46.3); Red Blood Count 4.77 M/uL (4.70-6.10); White Blood Count 7.27 K/ul (4.8-10.8)
[2025-03-02 09:26] LABS: Anion Gap 8.0 (3-11); Blood Urea Nitrogen 20.0 mg/dl (6-23); Calcium 9.4 mg/dl (8.6-10.3); Carbon Dioxide 27.0 mmol/L (21-32); Chloride 104.0 mmol/L (98-107); Creatinine Clr Calc Pharmacy 68.4 ml/min; Glucose 132.0 mg/dl (70-99(Fasting)); Potassium 3.9 mmol/L (3.5-5.1); Sodium 139.0 mmol/L (136-145)
[2025-03-02] MEDS: SODIUM CHLORIDE 0.9% 1,000 ML IV SCH (15:24)
--- NOTE | 2025-03-02 16:32 | Hospitalist Progress Note ---
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 Patient was diagnosed with prostate cancer and completed radiation treatment last Saturday as per brother. As per brother patient for last 6 days was not sleeping. Patient is trying to to get up from the bed frequently and trying to pull out the Fontanez catheter . Somewhat getting agitated. This reason patient was brought to the ER. In the ER received IV Ativan. Currently patient is pleasant. Patient knows that he is in the [facility]. Knows current month and year. Could tell his name. Two brothers in the room. Brother says when the patient is with them he gets agitated and angry but in the the hospital he seems to be calmer now. No recent fevers. His appetite is okay. Patient denies any chest pain. Denies abdominal pain. Denies back pain. Denies headache. No runny nose or sore throat. No nausea. Fontanez catheter bag somewhat pink-colored. Brother says sometimes he passes clots in the urine but urine mostly is yellow or clear. Ambulates wit hout support. Hemodynamics are okay. Altered mental status Most from UTI complicated by lack of sleep for the last 6 days and possible injury to the Fontanez Empiric Rocephin Will follow cultures-urine culture is growing Staphylococcus aureus likely contaminant Will continue IV Rocephin for about 3 days Gentle fluids for 1 L Clinically better with decreasing agitation and remains pleasantly confused Remains confused but no agitation Urine culture came back positive for Staph aureus more than 100,000 colonies and sensitive to Bactrim Will discontinue Rocephin and start with Bactrim DS twice daily Monitor kidney function and electrolytes Mental status seems to be at his baseline with confusion with history of dementia No behavioral disturbances and/or agitation Will continue treatment with Bactrim for 5-7 days Remains confused and seems to be less conversive today Has not been eating and drinking reasonably Discussed with the brothers and he will be given some IV fluid and also advised to drink more water Continue PT and OT and the patient may need placement Severe Lewy body dementia with psychotic disturbance At home patient seems to getting agitated Currently pleasant and oriented x 3 Continues home medication pimavanserin IV Zyprexa as needed for agitation No more agitation-but remains confused Required 1 dose of Zyprexa last evening Prostate cancer Follows with urology Completed radiation treatment On Lupron shots On Flomax On Fontanez catheter Fontanez care Slightly pinkish color urine If not cleared will consult urology-urine is clearing up and the patient was advised to drink more fluid Obstructive sleep apnea Not using CPAP No shortness of breath at rest History of hypertension Seems currently not on meds We will monitor Constipation On Metamucil MiraLAX as needed DVT prophylaxis Lovenox Disposition Medical floor CODE STATUS DNR as per brother but he thinks he wanted to try for 24 hours. Will keep full code for now Admission and Anticipated Discharge Date Admission Date: February 26, 2025 Subjective 02/27/2025 The patient was seen and examined in medical floor He remains pleasantly confused but does not have any agitation as was noted yesterday Bed without any acute distress 02/28/2025 The patient was seen and examined in medical floor He has been confused but does not have any agitation Does not seems to be in any other acute distress 03/01/2025 The patient was seen and examined in medical floor He remains confused but does not have any aggressiveness or agitation Has been following commands reasonably and taking his medications and food 03/02/2025 The patient was seen and examined in medical floor in presence of the brothers He remains confused and less conversive today Has had some shaking episodes while trying to come out of chair Review of Systems Review of Systems: Unobtainable due to cognitive status Physical Exam Physical Exam: Sitting on a chair without any acute distress Constitutional: well developed, well nourished, + ill appearing and + obese Eyes: PERRL, conjunctivae normal, anicteric sclerae ENMT: external ear and nose normal, oropharynx normal Neck: trachea midline, no thyromegaly Respiratory: no respiratory distress Auscultation: lungs clear to auscultation bilaterally Cardiovascular: Rate/Rhythm: regular rate and regular rhythm; not tachycardic Heart Sounds: normal S1 and normal S2; no murmur Extremities: + edema (Tra ce edema bilaterally) Gastrointestinal (Abdomen): Inspection/Auscultation: normal bowel sounds; abdomen not distended Percussion/Palpation: abdomen soft; abdomen nontender Neurologic: normal touch/pain/proprioception, moves all extremities and + confused; no focal motor deficits Remains confused without any agitation. Occasional meaningful conversation-not normal for him Lymphatic: no cervical or axillary lymphadenopathy Results & Data Results & Data Vital Signs (Past 12 Hours) Vital Signs Temp Pulse Resp BP Pulse Ox O2 Del Method 03/02/25 15:15 36.5 C 88 16 123/76 93 Room Air 03/02/25 07:05 36.5 C 83 16 134/83 92 Room Air Laboratory Results Short CBC 03/02/25 Range/Units 08:02 WBC 7.27 (4.8-10.8) K/ul Hgb 15.6 (14.0-18.0) g/dl Hct 44.8 (42.0-52.0) % Plt Count 243 (130-400) K/uL BMP 03/02/25 08:02 Sodium 139 Potassium 3.9 Chloride 104 Carbon Dioxide 27 BUN 20 Creatinine 1.20 Glucose 132 H Calcium 9.4 Medications Administered Current Inpatient Medications Acetaminophen (Acetaminophen 325 Mg Tab) 650 mg PO Q4H PRN PRN Reason: pain/fever Stop: 03/28/25 08:56 Last Admin: 02/27/25 21:11 Dose: 650 mg Calcium/Vitamin D (Calcium 600mg + Vit D 400 Iu Tab) 1 tab PO QAM EUGENE Stop: 03/28/25 08:59 Last Admin: 03/02/25 07:37 Dose: 1 tab Famotidine (Famotidine 20 Mg Tab) 20 mg PO BID PRN PRN Reason: Heartburn Stop: 03/28/25 08:56 Sodium Chloride (Nss) 1,000 mls @ 80 mls/hr IV .[id number] EUGENE Stop: 03/04/25 03:14 Last Admin: 03/02/25 15:24 Dose: 80 mls/hr Melatonin (Melatonin 3 Mg Tab) 9 mg PO HSZ PRN PRN Reason: Sleep Stop: 03/28/25 09:08 Last Admin: 03/01/25 20:32 Dose: 9 mg Olanzapine (Olanzapine 10 Mg/2.1 Ml Sdv) 2.5 mg IM Q4H PRN PRN Reason: Agitation Stop: 03/28/25 08:56 Last Admin: 02/28/25 20:42 Dose: 2.5 mg Pimavanserin ( Non Formulary Pimavanserin Tartrate) 1 each PO DAILY EUGENE Stop: 03/28/25 09:29 Last Admin: 03/02/25 07:38 Dose: 1 each Polyethylene Glycol (Polyethylene (Miralax) 17 Gm Pack) 17 gm PO DAILY PRN PRN Reason: Constipation Stop: 03/28/25 08:56 Psyllium Hydrophilic Mucilloid (Psyllium Husk 4gm Packet) 4 gm PO DAILY EUGENE Stop: 03/28/25 09:14 Last Admin: 03/02/25 07:38 Dose: 4 gm Tamsulosin HCl (Tamsulosin Hcl 0.4 Mg Cap) 0.4 mg PO DAILY [facility] Stop: 03/28/25 08:59 Last Admin: 03/02/25 07:38 Dose: 0.4 mg Trimethoprim/Sulfamethoxazole (Sulfamethoxazole/Trimethoprim Ds 800/160mg Tab) 1 tab PO Q12 EUGENE Stop: 03/10/25 08:59 Last Admin: 03/02/25 07:38 Dose: 1 tab
[2025-03-03 08:03] LABS: Hematocrit (blood only) 44.4 % (42.0-52.0); Hemoglobin 15.8 g/dl (14.0-18.0); Immature Granulocytes # (auto) 0.02 K/uL (0.01-0.20); Immature Granulocytes % (auto) 0.3 %; Mean Corpuscular Hemoglobin 33.5 pg (25.0-34.0); Mean Corpuscular Volume 94.1 fL (80.0-100.0); Platelet Count 231 K/uL (130-400); RDW Standard Deviation 43.1 fL (36.4-46.3); Red Blood Count 4.72 M/uL (4.70-6.10); White Blood Count 6.48 K/ul (4.8-10.8)
[2025-03-03 08:22] LABS: Anion Gap 6.0 (3-11); Blood Urea Nitrogen 23.0 mg/dl (6-23); Calcium 9.5 mg/dl (8.6-10.3); Carbon Dioxide 28.0 mmol/L (21-32); Chloride 105.0 mmol/L (98-107); Creatinine Clr Calc Pharmacy 66.7 ml/min; Glucose 106.0 mg/dl (70-99(Fasting)); Potassium 4.3 mmol/L (3.5-5.1); Sodium 139.0 mmol/L (136-145)
--- NOTE | 2025-03-03 17:52 | Hospitalist Progress Note ---
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 Patient was diagnosed with prostate cancer and completed radiation treatment last Saturday as per brother. As per brother patient for last 6 days was not sleeping. Patient is trying to to get up from the bed frequently and trying to pull out the Fontanez catheter . Somewhat getting agitated. This reason patient was brought to the ER. In the ER received IV Ativan. Currently patient is pleasant. Patient knows that he is in the [facility]. Knows current month and year. Could tell his name. Two brothers in the room. Brother says when the patient is with them he gets agitated and angry but in the the hospital he seems to be calmer now. No recent fevers. His appetite is okay. Patient denies any chest pain. Denies abdominal pain. Denies back pain. Denies headache. No runny nose or sore throat. No nausea. Fontanez catheter bag somewhat pink-colored. Brother says sometimes he passes clots in the urine but urine mostly is yellow or clear. Ambulates without support. Hemodynamics are okay. Altered mental status Most from UTI complicated by lack of sleep for the last 6 days and possible injury to the Fontanez Empiric Rocephin Will follow cultures-urine culture is growing Staphylococcus aureus likely contaminant Will continue IV Rocephin for about 3 days Gentle fluids for 1 L Clinically better with decreasing agitation and remains pleasantly confused Remains confused but no agitation Urine culture came back positive for Staph aureus more than 100,000 colonies and sensitive to Bactrim Will discontinue Rocephin and start with Bactrim DS twice daily Monitor kidney function and electrolytes Mental status seems to be at his baseline with confusion with history of dementia No behavioral disturbances and/or agitation Will continue treatment with Bactrim for 5-7 days Remains confused and seems to be less conversive today Has not been eating and drinking reasonably Discussed with the brothers and he will be given some IV fluid and also advised to drink more water Continue PT and OT and the patient may need placement 03/03 pleasantly confused, conversant continue Bactrim day 11/02 Severe Lewy body dementia with psychotic disturbance At home patient seems to getting agitated Currently pleasant and oriented x 3 Continues home medication pimavanserin IV Zyprexa as needed for agitation No more agitation-but remains confused Required 1 dose of Zyprexa last evening Prostate cancer Follows with urology Completed radiation treatment On Lupron shots On Flomax On Fontanez catheter Fontanez care Slightly pinkish color urine If not cleared will consult urology-urine is clearing up and the patient was advised to drink more fluid Obstructive sleep apnea Not using CPAP No shortness of breath at rest History of hypertension Seems currently not on meds We will monitor Constipation On Metamucil MiraLAX as needed DVT prophylaxis Lovenox Disposition Medical floor CODE STATUS DNR as per brother but he thinks he wanted to try for 24 hours. Will keep full code for now Admission and Anticipated Discharge Date Admission Date: February 26, 2025 Subjective ff up for UTI, etc seen resting in bed, comfortable patient pleasantly confused states he feels ok overall has some dysuria but improving no other symptoms Review of Systems Review of Systems: all noted and negative except for above Physical Exam Physical Exam: General- oriented x 1, not in distress, speaks in sentences with no effort or accessory muscle use Eyes- anicteric Neck- no JVD Lungs- clear breath sounds bilaterally, no rales/wheezes Heart- normal rate, regular rhythm; no murmurs Abdomen- normal bowel sounds, nondistended, soft, no tenderness Extremities- no pretibial edema, no calf tenderness Neuro- alert, oriented x 1; no gross focal neurologic deficits Skin- warm & dry Results & Data Results & Data Vital Signs (Past 12 Hours) Vital Signs Temp Pulse Resp BP Pulse Ox O2 Del Method 03/03/25 14:47 36.7 C 93 H 16 156/96 H 98 Room Air 03/03/25 07:44 36.3 C L 81 18 116/77 93 Room Air all noted and reviewed including below
[2025-03-03] MEDS: OLANZAPINE 2.5 MG TAB PO PRN (21:43)
[2025-03-04] MEDS: ADVANCED PROBIOTIC 625 MG CAPSULE PO SCH (10:37)
--- NOTE | 2025-03-04 17:25 | Hospitalist Progress Note ---
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 Patient was diagnosed with prostate cancer and completed radiation treatment last Saturday as per brother. As per brother patient for last 6 days was not sleeping. Patient is trying to to get up from the bed frequently and trying to pull out the Fontanez catheter . Somewhat getting agitated. This reason patient was brought to the ER. In the ER received IV Ativan. Currently patient is pleasant. Patient knows that he is in the [facility]. Knows current month and year. Could tell his name. Two brothers in the room. Brother says when the patient is with them he gets agitated and angry but in the the hospital he seems to be calmer now. No recent fevers. His appetite is okay. Patient denies any chest pain. Denies abdominal pain. Denies back pain. Denies headache. No runny nose or sore throat. No nausea. Fontanez catheter bag somewhat pink-colored. Brother says sometimes he passes clots in the urine but urine mostly is yellow or clear. Ambulates without support. Hemodynamics are okay. Altered mental status Most from UTI complicated by lack of sleep for the last 6 days and possible injury to the Fontanez Empiric Rocephin Will follow cultures-urine culture is growing Staphylococcus aureus likely contaminant Will continue IV Rocephin for about 3 days Gentle fluids for 1 L Clinically better with decreasing agitation and remains pleasantly confused Remains confused but no agitation Urine culture came back positive for Staph aureus more than 100,000 colonies and sensitive to Bactrim Will discontinue Rocephin and start with Bactrim DS twice daily Monitor kidney function and electrolytes Mental status seems to be at his baseline with confusion with history of dementia No behavioral disturbances and/or agitation Will continue treatment with Bactrim for 5-7 days Remains confused and seems to be less conversive today Has not been eating and drinking reasonably Discussed with the brothers and he will be given some IV fluid and also advised to drink more water Continue PT and OT and the patient may need placement 03/03 pleasantly confused, conversant continue Bactrim day 11/02 03/04 Creatinine stable Continue Bactrim day 5 out of 7 Severe Lewy body dementia with psychotic disturbance At home patient seems to getting agitated Currently pleasant and oriented x 3 Continues home medication pimavanserin IV Zyprexa as needed for agitation No more agitation-but remains confused Required 1 dose of Zyprexa last evening 03/04 required Zyprexa overnight check CT head Prostate cancer Follows with urology Completed radiation treatment On Lupron shots On Flomax On Fontanez catheter Fontanez care Slightly pinkish color urine If not cleared will consult urology-urine is clearing up and the patient was advised to drink more fluid Obstructive sleep apnea Not using CPAP No shortness of breath at rest History of hypertension Seems currently not on meds We will monitor Constipation On Metamucil MiraLAX as needed DVT prophylaxis Lovenox Disposition Medical floor CODE STATUS DNR as per brother but he thinks he wanted to try for 24 hours. Will keep full code for now Admission and Anticipated Discharge Date Admission Date: February 26, 2025 Subjective Seen with SAMANTA Brown at the bedside Patient was agitated overnight, requiring Zyprexa Was not able to sleep well as per staff Today mostly sleepy, confused, required assistance with meals Otherwise stable overall per RN Patient is sleeping during my exam Review of Systems Review of Systems: all noted and negative except for above Physical Exam Physical Exam: General-sleeping, not in distress,breathing with no effort or accessory muscle use Eyes- anicteric Neck- no JVD Lungs- clear breath sounds bilaterally, no rales/wheezes Heart- normal rate, regular rhythm; no murmurs Abdomen- normal bowel sounds, nondistended, soft, nontender Fontanez catheter in place: Positive yellow urine Extremities- no pretibial edema, no calf tenderness Neuro- asleep Skin- warm & dry Results & Data Results & Data Vital Signs (Past 12 Hours) Vital Signs Temp Pulse Resp BP Pulse Ox O2 Del Method 03/04/25 14:01 36.5 C 84 18 141/85 H 94 Room Air all noted and reviewed including below
--- NOTE | 2025-03-04 18:23 | CT Scan Report ---
CT head without contrast History: Confusion Comparison: None Technique: Using multidetector thin collimation helical acquisition technique, axial, coronal and sagittal CT images from the skull base to the vertex were obtained without intravenous contrast. Dose reduction techniques were achieved by using automatic exposure control and/or adjustment of mA and/or kV according to patient size and/or use of iterative reconstruction technique. Findings: No intracranial hemorrhage, mass-effect, or midline shift. The ventricles are proportionate to the cerebral sulci. The barrow to white matter differentiation of the cerebral hemispheres is preserved. The basal cisterns are patent. The visualized paranasal sinuses are clear. Mastoid air cells are clear. Impression: No acute intracranial pathology. Electronically signed by Teddy Barrios 03-04-2025 6:22 PM
[2025-03-04] MEDS: ENOXAPARIN INJ 40 MG/0.4 ML SYR SQ SCH (20:11)
[2025-03-05] MEDS: POLYETHYLENE (MIRALAX) 17 GM PACK PO PRN (08:52)
[2025-03-05] MEDS: LACTULOSE SYRUP 20 GM/30 ML UDC PO PRN (10:52)
[2025-03-05 11:30] LABS: Anion Gap 8.0 (3-11); Blood Urea Nitrogen 15.0 mg/dl (6-23); Calcium 8.8 mg/dl (8.6-10.3); Carbon Dioxide 23.0 mmol/L (21-32); Chloride 106.0 mmol/L (98-107); Creatinine Clr Calc Pharmacy 84.6 ml/min; Glucose 107.0 mg/dl (70-99(Fasting)); Potassium 3.9 mmol/L (3.5-5.1); Sodium 137.0 mmol/L (136-145)
--- NOTE | 2025-03-05 19:15 | Hospitalist Progress Note ---
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 Patient was diagnosed with prostate cancer and completed radiation treatment last Saturday as per brother. As per brother patient for last 6 days was not sleeping. Patient is trying to to get up from the bed frequently and trying to pull out the Fontanez catheter . Somewhat getting agitated. This reason patient was brought to the ER. In the ER received IV Ativan. Currently patient is pleasant. Patient knows that he is in the [facility]. Knows current month and year. Could tell his name. Two brothers in the room. Brother says when the patient is with them he gets agitated and angry but in the the hospital he seems to be calmer now. No recent fevers. His appetite is okay. Patient denies any chest pain. Denies abdominal pain. Denies back pain. Denies headache. No runny nose or sore throat. No nausea. Fontanez catheter bag somewhat pink-colored. Brother says sometimes he passes clots in the urine but urine mostly is yellow or clear. Ambulates without support. Hemodynamics are okay. Altered mental status Most from UTI complicated by lack of sleep for the last 6 days and possible injury to the Fontanez Empiric Rocephin Will follow cultures-urine culture is growing Staphylococcus aureus likely contaminant Will continue IV Rocephin for about 3 days Gentle fluids for 1 L Clinically better with decreasing agitation and remains pleasantly confused Remains confused but no agitation Urine culture came back positive for Staph aureus more than 100,000 colonies and sensitive to Bactrim Will discontinue Rocephin and start with Bactrim DS twice daily Monitor kidney function and electrolytes Mental status seems to be at his baseline with confusion with history of dementia No behavioral disturbances and/or agitation Will continue treatment with Bactrim for 5-7 days Remains confused and seems to be less conversive today Has not been eating and drinking reasonably Discussed with the brothers and he will be given some IV fluid and also advised to drink more water Continue PT and OT and the patient may need placement 03/03 pleasantly confused, conversant continue Bactrim day /03/04 Creatinine stable Continue Bactrim day 5 out of 7 03/05 continue Bactrim Severe Lewy body dementia with psychotic disturbance At home patient seems to getting agitated Currently pleasant and oriented x 3 Continues home medication pimavanserin IV Zyprexa as needed for agitation No more agitation-but remains confused Required 1 dose of Zyprexa last evening 03/[address] head: no acute process monitor closely Prostate cancer Follows with urology Completed radiation treatment On Lupron shots On Flomax On Fontanez catheter Fontanez care Slightly pinkish color urine If not cleared will consult urology-urine is clearing up and the patient was advised to drink more fluid Obstructive sleep apnea Not using CPAP No shortness of breath at rest History of hypertension Seems currently not on meds We will monitor Constipation On Metamucil MiraLAX as needed DVT prophylaxis Lovenox Disposition Medical floor CODE STATUS DNR as per brother but he thinks he wanted to try for 24 hours. Will keep full code for now Admission and Anticipated Discharge Date Admission Date: February 26, 2025 Subjective seen resting in bed, pleasantly confused denies abdominal pain, nausea no chest pain, dyspnea no other symptoms Review of Systems Review of Systems: all noted and negative except for above Physical Exam Physical Exam: General- oriented x 0, not in distress, speaks in sentences with no effort or accessory muscle use Eyes- anicteric Neck- no JVD Lungs- clear breath sounds bilaterally, no rales/wheezes Heart- normal rate, regular rhythm; no murmurs Abdomen- normal bowel sounds, nondistended, soft, nontender Extremities- no pretibial edema, no calf tenderness Neuro- alert, oriented x 0; no gross focal neurologic deficits Skin- warm & dry Results & Data Results & Data Vital Signs (Past 12 Hours) Vital Signs Temp Pulse Pulse Resp BP Pulse Ox O2 Del Method 03/05/25 14:23 37.1 C 86 16 142/98 H 92 Room Air 03/05/25 07:17 36.6 C 76 16 147/96 H 92 Room Air all noted and reviewed including below
--- NOTE | 2025-03-06 19:57 | Hospitalist Progress Note ---
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 Patient was diagnosed with prostate cancer and completed radiation treatment last Saturday as per brother. As per brother patient for last 6 days was not sleeping. Patient is trying to to get up from the bed frequently and trying to pull out the Fontanez catheter . Somewhat getting agitated. This reason patient was brought to the ER. In the ER received IV Ativan. Currently patient is pleasant. Patient knows that he is in the [facility]. Knows current month and year. Could tell his name. Two brothers in the room. Brother says when the patient is with them he gets agitated and angry but in the the hospital he seems to be calmer now. No recent fevers. His appetite is okay. Patient denies any chest pain. Denies abdominal pain. Denies back pain. Denies headache. No runny nose or sore throat. No nausea. Fontanez catheter bag somewhat pink-colored. Brother says sometimes he passes clots in the urine but urine mostly is yellow or clear. Ambulates without support. Hemodynamics are okay. Altered mental status Most from UTI complicated by lack of sleep for the last 6 days and possible injury to the Fontanez Empiric Rocephin Will follow cultures-urine culture is growing Staphylococcus aureus likely contaminant Will continue IV Rocephin for about 3 days Gentle fluids for 1 L Clinically better with decreasing agitation and remains pleasantly confused Remains confused but no agitation Urine culture came back positive for Staph aureus more than 100,000 colonies and sensitive to Bactrim Will discontinue Rocephin and start with Bactrim DS twice daily Monitor kidney function and electrolytes Mental status seems to be at his baseline with confusion with history of dementia No behavioral disturbances and/or agitation Will continue treatment with Bactrim for 5-7 days Remains confused and seems to be less conversive today Has not been eating and drinking reasonably Discussed with the brothers and he will be given some IV fluid and also advised to drink more water Continue PT and OT and the patient may need placement 03/03 pleasantly confused, conversant continue Bactrim day 11/02 03/04 Creatinine stable Continue Bactrim day 5 out of 10 03/06 Day 02/04 of Bactrim for CAUTI monitor crea Severe Lewy body dementia with psychotic disturbance At home patient seems to getting agitated Currently pleasant and oriented x 3 Continues home medication pimavanserin IV Zyprexa as needed for agitation No more agitation-but remains confused Required 1 dose of Zyprexa last evening 03/06 stable less agitated Prostate cancer Follows with urology Completed radiation treatment On Lupron shots On Flomax On Fontanez catheter Fontanez care Slightly pinkish color urine If not cleared will consult urology-urine is clearing up and the patient was advised to drink more fluid Obstructive sleep apnea Not using CPAP No shortness of breath at rest History of hypertension Seems currently not on meds We will monitor Constipation On Metamucil MiraLAX as needed DVT prophylaxis Lovenox Disposition Medical floor CODE STATUS DNR as per brother but he thinks he wanted to try for 24 hours. Will keep full code for now Admission and Anticipated Discharge Date Admission Date: February 26, 2025 Subjective seen resting in bed, comfortable pleasantly confused states he feels fine overall no chest pain, dyspnea, palpitations, dizziness no abdominal pain (+) BMs per joint maker machine of Systems Review of Systems: all noted and negative except for above Physical Exam Physical Exam: General- oriented x 0, not in distress, speaks in sentences with no effort or accessory muscle use Eyes- anicteric Neck- no JVD Lungs- clear breath sounds bilaterally Heart- normal rate, regular rhythm; no murmurs Abdomen- normal bowel sounds, nondistended, soft, nontender Extremities- no pretibial edema, no calf tenderness Neuro- alert, oriented x 0; no new gross focal neurologic deficits Skin- warm & dry Results & Data Results & Data Vital Signs (Past 12 Hours) Vital Signs Temp Pulse Resp BP Pulse Ox O2 Del Method 03/06/25 15:39 36.9 C 72 16 114/73 93 Room Air all noted and reviewed including below
--- NOTE | 2025-03-07 17:24 | Hospitalist Progress Note ---
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 Patient was diagnosed with prostate cancer and completed radiation treatment last Saturday as per brother. As per brother patient for last 6 days was not sleeping. Patient is trying to to get up from the bed frequently and trying to pull out the Fontanez catheter . Somewhat getting agitated. This reason patient was brought to the ER. In the ER received IV Ativan. Currently patient is pleasant. Patient knows that he is in the [facility]. Knows current month and year. Could tell his name. Two brothers in the room. Brother says when the patient is with them he gets agitated and angry but in the the hospital he seems to be calmer now. No recent fevers. His appetite is okay. Patient denies any chest pain. Denies abdominal pain. Denies back pain. Denies headache. No runny nose or sore throat. No nausea. Fontanez catheter bag somewhat pink-colored. Brother says sometimes he passes clots in the urine but urine mostly is yellow or clear. Ambulates without support. Hemodynamics are okay. Altered mental status Most from UTI complicated by lack of sleep for the last 6 days and possible injury to the Fontanez Empiric Rocephin Will follow cultures-urine culture is growing Staphylococcus aureus likely contaminant Will continue IV Rocephin for about 3 days Gentle fluids for 1 L Clinically better with decreasing agitation and remains pleasantly confused Remains confused but no agitation Urine culture came back positive for Staph aureus more than 100,000 colonies and sensitive to Bactrim Will discontinue Rocephin and start with Bactrim DS twice daily Monitor kidney function and electrolytes Mental status seems to be at his baseline with confusion with history of dementia No behavioral disturbances and/or agitation Will continue treatment with Bactrim for 5-7 days Remains confused and seems to be less conversive today Has not been eating and drinking reasonably Discussed with the brothers and he will be given some IV fluid and also advised to drink more water Continue PT and OT and the patient may need placement 03/03 pleasantly confused, conversant continue Bactrim day 11/02 03/04 Creatinine stable Continue Bactrim day 5 out of 10 03/06 Day 02/04 of Bactrim for CAUTI monitor crea 03/07 Day 8 bactrim check crea Severe Lewy body dementia with psychotic disturbance At home patient seems to getting agitated Currently pleasant and oriented x 3 Continues home medication pimavanserin IV Zyprexa as needed for agitation No more agitation-but remains confused Required 1 dose of Zyprexa last evening 03/06 stable less agitated 03/07 calm, cooperative monitor Prostate cancer Follows with urology Completed radiation treatment On Lupron shots On Flomax On Fontanez catheter Fontanez care Slightly pinkish color urine If not cleared will consult urology-urine is clearing up and the patient was advised to drink more fluid Obstructive sleep apnea Not using CPAP No shortness of breath at rest History of hypertension Seems currently not on meds We will monitor Constipation On Metamucil MiraLAX as needed DVT prophylaxis Lovenox Disposition Medical floor CODE STATUS DNR as per brother but he thinks he wanted to try for 24 hours. Will keep full code for now Admission and Anticipated Discharge Date Admission Date: February 26, 2025 Subjective resting in chair, watching tv pleasantly confused comfortable denies pain no chest pain, dyspnea, palpitations, dizziness no new issues per RN, (+) BMs Review of Systems Review of Systems: all noted and negative except for above Physical Exam Physical Exam: General- oriented x 0, not in distress, speaks in sentences with no effort or accessory muscle use Eyes- anicteric Neck- no JVD Lungs- clear BS BL Heart- normal rate, regular rhythm; no murmurs Abdomen- normal bowel sounds, nondistended, soft, nontender Fontanez cath: yellow urine Extremities- no pretibial edema, no calf tenderness Neuro- alert, oriented x 0; no gross focal neurologic deficits Skin- warm & dry Results & Data Results & Data Vital Signs (Past 12 Hours) Vital Signs Temp Pulse Resp BP Pulse Ox O2 Del Method 03/07/25 15:56 36.8 C 92 H 18 125/77 95 Room Air 03/07/25 07:16 36.9 C 82 18 150/87 H 94 Room Air all noted and reviewed including below
[2025-03-07 17:55] LABS: Anion Gap 8.0 (3-11); Blood Urea Nitrogen 22.0 mg/dl (6-23); Calcium 9.1 mg/dl (8.6-10.3); Carbon Dioxide 22.0 mmol/L (21-32); Chloride 107.0 mmol/L (98-107); Creatinine Clr Calc Pharmacy 58.6 ml/min; Glucose 148.0 mg/dl (70-99(Fasting)); Potassium 4.1 mmol/L (3.5-5.1); Sodium 137.0 mmol/L (136-145)
--- NOTE | 2025-03-08 19:49 | Hospitalist Progress Note ---
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 Patient was diagnosed with prostate cancer and completed radiation treatment last Saturday as per brother. As per brother patient for last 6 days was not sleeping. Patient is trying to to get up from the bed frequently and trying to pull out the Fontanez catheter . Somewhat getting agitated. This reason patient was brought to the ER. In the ER received IV Ativan. Currently patient is pleasant. Patient knows that he is in the [facility]. Knows current month and year. Could tell his name. Two brothers in the room. Brother says when the patient is with them he gets agitated and angry but in the the hospital he seems to be calmer now. No recent fevers. His appetite is okay. Patient denies any chest pain. Denies abdominal pain. Denies back pain. Denies headache. No runny nose or sore throat. No nausea. Fontanez catheter bag somewhat pink-colored. Brother says sometimes he passes clots in the urine but urine mostly is yellow or clear. Ambulates without support. Hemodynamics are okay. Altered mental status Urinary tract infection, MSSA Most from UTI complicated by lack of sleep for the last 6 days and possible injury to the Fontanez Will follow cultures-urine culture is growing Staphylococcus aureus likely contaminant Will continue IV Rocephin for about 3 days Urine culture came back positive for Staph aureus more than 100,000 colonies and sensitive to Bactrim Will discontinue Rocephin and start with Bactrim DS twice daily 03/08 mental status seems to be improving has not required Zyprexa x 2-3 days continue Bactrim Day 04/07 Severe Lewy body dementia with psychotic disturbance At home patient seems to getting agitated Currently pleasant and oriented x 3 Continues home medication pimavanserin IV Zyprexa as needed for agitation No more agitation-but remains confused Required 1 dose of Zyprexa last evening CT head: no acute process -- mental status seems to be improving has not required Zyprexa x 2-3 days continue Bactrim Day 04/07 Prostate cancer Follows with urology Completed radiation treatment On Lupron shots On Flomax On Fontanez catheter Fontanez care -- trial of voiding, remove Fontanez cath tomorrow Obstructive sleep apnea Not using CPAP No shortness of breath at rest History of hypertension Seems currently not on meds We will monitor Constipation On Metamucil MiraLAX as needed DVT prophylaxis Lovenox Disposition awaiting acceptance to SNF CODE STATUS Full Code Admission and Anticipated Discharge Date Admission Date: February 26, 2025 Subjective seen resting in bed, comfortable states he feels fine overall pleasantly confused no new symptoms Review of Systems Review of Systems: all noted and negative except for above Physical Exam Physical Exam: General- oriented x 0, not in distress, speaks in sentences with no effort or accessory muscle use Eyes- anicteric Neck- no JVD Lungs- clear breath sounds bilaterally Heart- normal rate, regular rhythm; no murmurs Abdomen- normal bowel sounds, nondistended, soft, nontender Fontanez cath: yellow urine Extremities- no pretibial edema, no calf tenderness Neuro- alert, oriented x 3; no gross focal neurologic deficits Skin- warm & dry Results & Data Results & Data Vital Signs (Past 12 Hours) Vital Signs Temp Pulse Pulse Resp BP Pulse Ox O2 Del Method 03/08/25 19:26 36.8 C 91 H 21 120/82 97 Room Air 03/08/25 15:06 37.3 C 91 H 18 121/87 96 Room Air all noted and reviewed including below
[2025-03-09] MEDS: PHENAZOPYRIDINE HCL 200 MG TAB PO STA (10:51)
[2025-03-09 11:23] LABS: Anion Gap 7.0 (3-11); Calcium 9.1 mg/dl (8.6-10.3); Carbon Dioxide 23.0 mmol/L (21-32); Chloride 104.0 mmol/L (98-107); Magnesium 2.3 mg/dl (1.7-2.4); Potassium 3.9 mmol/L (3.5-5.1); Sodium 134.0 mmol/L (136-145)
[2025-03-09 11:29] LABS: Blood Urea Nitrogen 22.0 mg/dl (6-23); Creatinine Clr Calc Pharmacy 70.8 ml/min; Glucose 127.0 mg/dl (70-99(Fasting))
--- NOTE | 2025-03-09 14:03 | Hospitalist Progress Note ---
Date of Service March 09, 2025 Assessment & Plan (1) AMS (altered mental status): Plan: Mr. 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 Patient was diagnosed with prostate cancer and completed radiation treatment last Saturday as per brother. Patient found to have MSSA UTI Now with some dysuria s/p cox removal. Will repeat ua, however suspect 2/2 cox #Altered mental status #Urinary tract infection, MSSA Most from UTI complicated by lack of sleep for the last 6 days and possible injury to the Cox Will follow cultures-urine culture is growing Staphylococcus aureus likely contaminant Will continue IV Rocephin for about 3 days Urine culture came back positive for Staph aureus more than 100,000 colonies and sensitive to Bactrim mental status seems to be improving has not required Zyprexa x 2-3 days completed Bactrim Day 05/07 #Severe Lewy body dementia with psychotic disturbance At home patient seems to getting agitated Currently pleasant and oriented x 3 Continues home medication pimavanserin IV Zyprexa as needed for agitation No more agitation-but remains confused Required 1 dose of Zyprexa last evening CT head: no acute process -- mental status seems to be improving has not required Zyprexa x 2-3 days continue Bactrim Day 05/07 #Prostate cancer Follows with urology Completed radiation treatment On Lupron shots On Flomax Cox removed #Obstructive sleep apnea Not using CPAP No shortness of breath at rest #History of hypertension Seems currently not on meds We will monitor 3Constipation On Metamucil MiraLAX as needed DVT prophylaxis Lovenox Disposition awaiting acceptance to SNF CODE STATUS Full Code Admission and Anticipated Discharge Date Admission Date: February 26, 2025 Subjective NAEO reports some dysuria since cox removal Physical Exam Constitutional: WD/WN, vitals as above Respiratory: normal respiratory effort, lungs clear to auscultation Cardiovascular: RRR, no murmur, no edema Gastrointestinal (Abdomen): normal bowel sounds, soft, nontender, no hepatosplenomegaly Results & Data Results & Data Vital Signs (Past 12 Hours) Vital Signs Temp Pulse Resp BP Pulse Ox O2 Del Method 03/09/25 07:35 36.6 C 77 18 133/81 95 Room Air Laboratory Results [facility] 03/09/25 10:54 Sodium 134 L Potassium 3.9 Chloride 104 Carbon Dioxide 23 BUN 22 Creatinine 1.14 Glucose 127 H Calcium 9.1 Medications Administered Home Medications Medication Instructions Recorded Confirmed Last Taken famotidine 20 mg tablet (Pepcid) 20 mg PO BID PRN Heartburn 09/30/18 02/26/25 Unknown omega 2-lkz-njk-fish oil 1,000 mg 3 cap PO QAM 09/30/18 02/26/25 01/25/21 (120 mg-180 mg) capsule (Fish Oil) polyethylene glycol 3350 17 gram 17 g PO DAILY PRN Constipation 09/30/18 02/26/25 Unknown oral powder packet (Miralax) tamsulosin 0.4 mg capsule 0.4 mg PO DAILY 01/25/21 02/26/25 01/25/21 pimavanserin 34 mg capsule 34 mg PO DAILY 10/28/24 02/26/25 Unknown calcium 600 mg (as 1 tab PO QAM 01/29/25 02/26/25 Unknown carbonate)-vitamin D3 10 mcg (400 unit) tablet (Calcium 600 + D(3)) psyllium husk 3.4 gram/5.4 gram 1 tbsp PO DAILY 02/01/25 02/26/25 Unknown oral powder (Metamucil) melatonin 10 mg capsule 10 mg PO HS PRN Sleep 02/15/25 02/26/25 Unknown leuprolide (3 month) 22.5 mg (3 22.5 mg subcut ONCE #1 ea 02/25/25 02/26/25 Unknown month) subcutaneous syringe Active Medications Generic Name Dose Route Start Last Admin Trade Name Freq PRN Reason Stop Dose Admin Acetaminophen 650 mg 02/26/25 08:57 03/07/25 19:58 Acetaminophen 325 Mg Tab PO 03/28/25 08:56 650 mg Q4H PRN Administration pain/fever Calcium/Vitamin D 1 tab 02/26/25 09:00 03/09/25 09:36 Calcium 600mg + Vit D 400 Iu Tab PO 03/28/25 08:59 1 tab QAM EUGENE Administration Enoxaparin Sodium 40 mg 03/04/25 21:00 03/08/25 20:15 Enoxaparin Inj 40 Mg/0.4 Ml Syr SQ 04/03/25 20:59 40 mg HS EUGENE Administration Lactobacillus Acidophilus 1,250 mg 03/04/25 09:00 03/09/25 09:37 Advanced Probiotic 625 Mg Capsule PO 04/03/25 08:59 1,250 mg DAILY EUGENE Administration Lactulose 30 gm 03/04/25 17:27 03/05/25 10:52 Lactulose Syrup 20 Gm/30 Ml Udc PO 04/03/25 17:29 30 gm DAILY PRN Administration constipation Melatonin 9 mg 02/26/25 09:09 03/07/25 19:58 Melatonin 3 Mg Tab PO 03/28/25 09:08 9 mg HSZ PRN Administration Sleep Pimavanserin 1 each 02/26/25 09:30 03/09/25 09:36 Non Formulary Pimavanserin Tartrate PO 03/28/25 09:29 1 each DAILY EUGENE Administration Polyethylene Glycol 17 gm 02/26/25 08:57 03/05/25 08:52 Polyethylene (Miralax) 17 Gm Pack PO 03/28/25 08:56 17 gm DAILY PRN Administration Constipation Psyllium Hydrophilic Mucilloid 4 gm 02/26/25 09:15 03/09/25 09:37 Psyllium Husk 4gm Packet PO 03/28/25 09:14 4 gm DAILY EUGENE Administration Tamsulosin HCl 0.4 mg 02/26/25 09:00 03/09/25 09:37 Tamsulosin Hcl 0.4 Mg Cap PO 03/28/25 08:59 0.4 mg DAILY EUGENE Administration Trimethoprim/Sulfamethoxazole 1 tab 02/28/25 21:00 03/09/25 09:36 Sulfamethoxazole/Trimethoprim Ds 800/160mg Tab PO 03/10/25 08:59 1 tab Q12 EUGENE Administration
[2025-03-09 19:09] LABS: Appearance Urine Clear (Clear)
[2025-03-09 19:19] LABS: Epithelial Cell Urine 0-2 /hpf (0-2)
[2025-03-10 08:38] LABS: Hematocrit (blood only) 40.5 % (42.0-52.0); Hemoglobin 14.2 g/dl (14.0-18.0); Mean Corpuscular Hemoglobin 33.6 pg (25.0-34.0); Mean Corpuscular Volume 95.7 fL (80.0-100.0); Platelet Count 223 K/uL (130-400); RDW Standard Deviation 44.9 fL (36.4-46.3); Red Blood Count 4.23 M/uL (4.70-6.10); White Blood Count 5.93 K/ul (4.8-10.8)
[2025-03-10 09:04] LABS: Anion Gap 7.0 (3-11); Blood Urea Nitrogen 21.0 mg/dl (6-23); Calcium 9.1 mg/dl (8.6-10.3); Carbon Dioxide 26.0 mmol/L (21-32); Chloride 106.0 mmol/L (98-107); Creatinine Clr Calc Pharmacy 61.6 ml/min; Glucose 101.0 mg/dl (70-99(Fasting)); Potassium 4.2 mmol/L (3.5-5.1); Sodium 139.0 mmol/L (136-145)
--- NOTE | 2025-03-10 11:46 | Hospitalist Progress Note ---
Date of Service March 10, 2025 Assessment & Plan (1) AMS (altered mental status): Plan: Mr. 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 Patient was diagnosed with prostate cancer and completed radiation treatment last Saturday as per brother. Patient found to have MSSA UTI Now with some dysuria s/p cox removal and hesitancy. Noted to have frequent incontinence and expressing difficulty urinating, cox reinserted. #Altered mental status #Urinary tract infection, MSSA Most from UTI complicated by lack of sleep for the last 6 days and possible injury to the Cox Will follow cultures-urine culture is growing Staphylococcus aureus likely contaminant Will continue IV Rocephin for about 3 days Urine culture came back positive for Staph aureus more than 100,000 colonies and sensitive to Bactrim mental status seems to be improving has not required Zyprexa x 2-3 days completed Bactrim Day 05/07 #Severe Lewy body dementia with psychotic disturbance At home patient seems to getting agitated Currently pleasant and oriented x 3 Continues home medication pimavanserin IV Zyprexa as needed for agitation No more agitation-but remains confused Required 1 dose of Zyprexa last evening CT head: no acute process -- mental status seems to be improving has not required Zyprexa x 2-3 days continue Bactrim Day 05/07 #Urinary retention #Prostate cancer Follows with urology Completed radiation treatment On Lupron shots On Flomax Cox removed> however, with some discomfort and dribbling and elevated PVR, replace cox, plan to keep 1 more week for void trial #Obstructive sleep apnea Not using CPAP No shortness of breath at rest #History of hypertension Seems currently not on meds We will monitor 3Constipation On Metamucil MiraLAX as needed DVT prophylaxis Lovenox Disposition awaiting acceptance to [facility] CODE STATUS Full Code Admission and Anticipated Discharge Date Admission Date: February 26, 2025 Subjective Reports of hallucinations/delusions this morning endorsing notable pain and urinary discomfort. Physical Exam Constitutional: WD/WN, vitals as above Respiratory: normal respiratory effort, lungs clear to auscultation Cardiovascular: RRR, no murmur, no edema Gastrointestinal (Abdomen): normal bowel sounds, soft, nontender, no hepatosplenomegaly Results & Data Results & Data Vital Signs (Past 12 Hours) Vital Signs Temp Pulse Resp BP Pulse Ox O2 Del Method 03/10/25 07:28 36.7 C 71 16 109/74 94 Room Air 03/10/25 02:21 36.6 C 79 14 106/72 94 Room Air Laboratory Results Short CBC 03/10/25 Range/Units 08:06 WBC 5.93 (4.8-10.8) K/ul Hgb 14.2 (14.0-18.0) g/dl Hct 40.5 L (42.0-52.0) % Plt Count 223 (130-400) K/uL BMP 03/10/25 08:06 Sodium 139 Potassium 4.2 Chloride 106 Carbon Dioxide 26 BUN 21 Creatinine 1.31 Glucose 101 H Calcium 9.1 Urine 03/09/25 Range/Units Unknown Urine Color See Comment Urine Appearance Clear (Clear) Urine pH Not Reportable Ur Specific [place] 1.019 (1.000-1.030) Urine Protein Not Reportable Urine Glucose (UA) Not Reportable Medications Administered Home Medications Medication Instructions Recorded Confirmed Last Taken famotidine 20 mg tablet (Pepcid) 20 mg PO BID PRN Heartburn 09/30/18 02/26/25 Unknown omega 2-cct-swe-fish oil 1,000 mg 3 cap PO QAM 09/30/18 02/26/25 01/25/21 (120 mg-180 mg) capsule (Fish Oil) polyethylene glycol 3350 17 gram 17 g PO DAILY PRN Constipation 09/30/18 02/26/25 Unknown oral powder packet (Miralax) tamsulosin 0.4 mg capsule 0.4 mg PO DAILY 01/25/21 02/26/25 01/25/21 pimavanserin 34 mg capsule 34 mg PO DAILY 10/28/24 02/26/25 Unknown calcium 600 mg (as 1 tab PO QAM 01/29/25 02/26/25 Unknown carbonate)-vitamin D3 10 mcg (400 unit) tablet (Calcium 600 + D(3)) psyllium husk 3.4 gram/5.4 gram 1 tbsp PO DAILY 02/01/25 02/26/25 Unknown oral powder (Metamucil) melatonin 10 mg capsule 10 mg PO HS PRN Sleep 02/15/25 02/26/25 Unknown leuprolide (3 month) 22.5 mg (3 22.5 mg subcut ONCE #1 ea 02/25/25 02/26/25 Unknown month) subcutaneous syringe Active Medications Generic Name Dose Route Start Last Admin Trade Name Freq PRN Reason Stop Dose Admin Acetaminophen 650 mg 02/26/25 08:57 03/09/25 20:55 Acetaminophen 325 Mg Tab PO 03/28/25 08:56 650 mg Q4H PRN Administration pain/fever Calcium/Vitamin D 1 tab 02/26/25 09:00 03/10/25 08:36 Calcium 600mg + Vit D 400 Iu Tab PO 03/28/25 08:59 1 tab QAM EUGENE Administration Enoxaparin Sodium 40 mg 03/04/25 21:00 03/09/25 20:55 Enoxaparin Inj 40 Mg/0.4 Ml Syr SQ 04/03/25 20:59 40 mg HS EUGENE Administration Lactobacillus Acidophilus 1,250 mg 03/04/25 09:00 03/10/25 08:36 Advanced Probiotic 625 Mg Capsule PO 04/03/25 08:59 1,250 mg DAILY EUGENE Administration Lactulose 30 gm 03/04/25 17:27 03/05/25 10:52 Lactulose Syrup 20 Gm/30 Ml Udc PO 04/03/25 17:29 30 gm DAILY PRN Administration constipation Melatonin 9 mg 02/26/25 09:09 03/09/25 20:55 Melatonin 3 Mg Tab PO 03/28/25 09:08 9 mg HSZ PRN Administration Sleep Pimavanserin 1 each 02/26/25 09:30 03/10/25 08:35 Non Formulary Pimavanserin Tartrate PO 03/28/25 09:29 1 each DAILY EUGENE Administration Polyethylene Glycol 17 gm 02/26/25 08:57 03/05/25 08:52 Polyethylene (Miralax) 17 Gm Pack PO 03/28/25 08:56 17 gm DAILY PRN Administration Constipation Psyllium Hydrophilic Mucilloid 4 gm 02/26/25 09:15 03/10/25 08:36 Psyllium Husk 4gm Packet PO 03/28/25 09:14 4 gm DAILY EUGENE Administration Tamsulosin HCl 0.4 mg 02/26/25 09:00 03/10/25 08:36 Tamsulosin Hcl 0.4 Mg Cap PO 03/28/25 08:59 0.4 mg DAILY EUGENE Administration
[2025-03-11] MEDS: FAMOTIDINE 20 MG TAB PO PRN (08:57)
--- NOTE | 2025-03-11 10:47 | Hospitalist Progress Note ---
Date of Service March 11, 2025 Assessment & Plan (1) AMS (altered mental status): Plan: Mr. 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 Patient was diagnosed with prostate cancer and completed radiation treatment last Saturday as per brother. Patient found to have MSSA UTI Patient experienced some dysuria s/p cox removal and hesitancy, marked by urinary incontinence and frequency. UA clean. Bladder scan with notable PVR, resinsertion with 500+ return. Maintain cox for now with close urology follow up on d/c. #Altered mental status #Urinary tract infection, MSSA Most from UTI complicated by lack of sleep for the last 6 days and possible injury to the Cox Will follow cultures-urine culture is growing Staphylococcus aureus likely contaminant Will continue IV Rocephin for about 3 days Urine culture came back positive for Staph aureus more than 100,000 colonies and sensitive to Bactrim mental status seems to be stable has not required Zyprexa completed Bactrim Day 05/07 #Severe Lewy body dementia with psychotic disturbance At home patient seems to getting agitated Currently pleasant and oriented x 3 Continues home medication pimavanserin IV Zyprexa as needed for agitation CT head: no acute process -- mental status stable #Urinary retention #Prostate cancer Follows with urology Completed radiation treatment On Lupron shots On Flomax failed void trial, cox replaced 03/10, will maintain with urology follow up #Obstructive sleep apnea Not using CPAP No shortness of breath at rest #History of hypertension Seems currently not on meds We will monitor #Constipation On Metamucil MiraLAX as needed DVT prophylaxis Lovenox Disposition awaiting acceptance to SNF--possible d/c tomorrow CODE STATUS Full Code Admission and Anticipated Discharge Date Admission Date: February 26, 2025 Subjective NAEO more calm s/p cox replacement patient denies any acute concerns at this time Physical Exam Constitutional: WD/WN, vitals as above Respiratory: normal respiratory effort, lungs clear to auscultation Cardiovascular: RRR, no murmur, no edema Results & Data Results & Data Vital Signs (Past 12 Hours) Vital Signs Temp Pulse Resp BP Pulse Ox O2 Del Method 03/11/25 07:16 36.6 C 70 18 117/83 95 Room Air 03/10/25 23:25 36.6 C 75 16 147/89 H 95 Room Air Medications Administered Home Medications Medication Instructions Recorded Confirmed Last Taken famotidine 20 mg tablet (Pepcid) 20 mg PO BID PRN Heartburn 09/30/18 02/26/25 Unknown omega 7-sil-osl-fish oil 1,000 mg 3 cap PO QAM 09/30/18 02/26/25 01/25/21 (120 mg-180 mg) capsule (Fish Oil) polyethylene glycol 3350 17 gram 17 g PO DAILY PRN Constipation 09/30/18 02/26/25 Unknown oral powder packet (Miralax) tamsulosin 0.4 mg capsule 0.4 mg PO DAILY 01/25/21 02/26/25 01/25/21 pimavanserin 34 mg capsule 34 mg PO DAILY 10/28/24 02/26/25 Unknown calcium 600 mg (as 1 tab PO QAM 01/29/25 02/26/25 Unknown carbonate)-vitamin D3 10 mcg (400 unit) tablet (Calcium 600 + D(3)) psyllium husk 3.4 gram/5.4 gram 1 tbsp PO DAILY 02/01/25 02/26/25 Unknown oral powder (Metamucil) melatonin 10 mg capsule 10 mg PO HS PRN Sleep 02/15/25 02/26/25 Unknown leuprolide (3 month) 22.5 mg (3 22.5 mg subcut ONCE #1 ea 02/25/25 02/26/25 Unknown month) subcutaneous syringe Active Medications Generic Name Dose Route Start Last Admin Trade Name Freq PRN Reason Stop Dose Admin Acetaminophen 650 mg 02/26/25 08:57 03/11/25 00:44 Acetaminophen 325 Mg Tab PO 03/28/25 08:56 650 mg Q4H PRN Administration pain/fever Calcium/Vitamin D 1 tab 02/26/25 09:00 03/11/25 08:57 Calcium 600mg + Vit D 400 Iu Tab PO 03/28/25 08:59 1 tab QAM EUGENE Administration Enoxaparin Sodium 40 mg 03/04/25 21:00 03/10/25 23:11 Enoxaparin Inj 40 Mg/0.4 Ml Syr SQ 04/03/25 20:59 40 mg HS EUGENE Administration Famotidine 20 mg 02/26/25 08:57 03/11/25 08:57 Famotidine 20 Mg Tab PO 03/28/25 08:56 20 mg BID PRN Administration Heartburn Lactobacillus Acidophilus 1,250 mg 03/04/25 09:00 03/11/25 08:57 Advanced Probiotic 625 Mg Capsule PO 04/03/25 08:59 1,250 mg DAILY EUGENE Administration Lactulose 30 gm 03/04/25 17:27 03/05/25 10:52 Lactulose Syrup 20 Gm/30 Ml Udc PO 04/03/25 17:29 30 gm DAILY PRN Administration constipation Melatonin 9 mg 02/26/25 09:09 03/11/25 00:43 Melatonin 3 Mg Tab PO 03/28/25 09:08 9 mg HSZ PRN Administration Sleep Pimavanserin 1 each 02/26/25 09:30 03/11/25 08:57 Non Formulary Pimavanserin Tartrate PO 03/28/25 09:29 1 each DAILY EUGENE Administration Polyethylene Glycol 17 gm 02/26/25 08:57 03/11/25 08:57 Polyethylene (Miralax) 17 Gm Pack PO 03/28/25 08:56 17 gm DAILY PRN Administration Constipation Psyllium Hydrophilic Mucilloid 4 gm 02/26/25 09:15 03/11/25 08:57 Psyllium Husk 4gm Packet PO 03/28/25 09:14 4 gm DAILY EUGENE Administration Tamsulosin HCl 0.4 mg 02/26/25 09:00 03/11/25 08:57 Tamsulosin Hcl 0.4 Mg Cap PO 03/28/25 08:59 0.4 mg DAILY EUGENE Administration
[2025-03-11] MEDS: OLANZAPINE 2.5 MG TAB PO STA (20:28)
[2025-03-12 07:32] VITALS: BP 146/73; PULSE 66; RESP 18; TEMP 98.1; O2SAT 95
--- NOTE | 2025-03-12 18:52 | Discharge Summary ---
Discharge Summary Date of Service March 12, 2025 delayed entry date of service noted above Principal Dx & Hospital Course #1 = Principal Diagnosis (1) AMS (altered mental status): Mr. 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 Patient was diagnosed with prostate cancer and completed radiation treatment last Saturday as per brother. Patient found to have MSSA UTI Patient experienced some dysuria s/p cox removal and hesitancy, marked by urinary incontinence and frequency. UA clean. Bladder scan with notable PVR, resinsertion with 500+ return. Maintain cox for now with close urology follow up on d/c. #Altered mental status #Urinary tract infection, MSSA Most from UTI complicated by lack of sleep for the last 6 days and possible injury to the Cox Will follow cultures-urine culture is growing Staphylococcus aureus likely contaminant Will continue IV Rocephin for about 3 days Urine culture came back positive for Staph aureus more than 100,000 colonies and sensitive to Bactrim mental status seems to be stable has not required Zyprexa completed Bactrim Day 05/07 #Severe Lewy body dementia with psychotic disturbance At home patient seems to getting agitated Currently pleasant and oriented x 3 Continues home medication pimavanserin IV Zyprexa as needed for agitation CT head: no acute process -- mental status stable #Urinary retention #Prostate cancer Follows with urology Completed radiation treatment On Lupron shots On Flomax failed void trial, cox replaced 03/10, will maintain with urology follow up #Obstructive sleep apnea Not using CPAP No shortness of breath at rest #History of hypertension Seems currently not on meds monitor #Constipation On Metamucil MiraLAX as needed DVT prophylaxis Lovenox Disposition accepted to SNF CODE STATUS Full Code Notes For Next Care Provider Medication Changes From Visit as per med reconciliation Admission HPI Per Admitting Provider 69-year-old male with past medical history significant for dyslipidemia, obstructive sleep apnea not using CPAP currently, hypertension, GERD, constipation,peyronie's disease, malignant neoplasm of prostate, 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 Patient was diagnosed with prostate cancer and completed radiation treatment last Saturday as per brother. As per brother patient for last 6 days was not sleeping. Patient is trying to to get up from the bed fr equently and trying to pull out the Cox catheter . Somewhat getting agitated. This reason patient was brought to the ER. In the ER received IV Ativan. Currently patient is pleasant. Patient knows that he is in the [facility]. Knows current month and year. Could tell his name. Two brothers in the room. Brother says when the patient is with them he gets agitated and angry but in the the hospital he seems to be calmer now. No recent fevers. His appetite is okay. Patient denies any chest pain. Denies abdominal pain. Denies back pain. Denies headache. No runny nose or sore throat. No nausea. Cox catheter bag somewhat pink-colored. Brother says sometimes he passes clots in the urine but urine mostly is yellow or clear. Ambulates without support. Hemodynamics are okay. Past medical history. As mentioned above. Past surgical history. Carpal tunnel surgery. Colonoscopy. Social history. Quit smoking in 1995. Quit alcohol 1995. No drug use. Family history. Mother had lung cancer. Diabetes. CABG. Brother had myotonic dystrophy. Sister had myotonic dystrophy. Father had stroke. Diabetes. Maternal grandfather had diabetes. Maternal grandmother had diabetes. Admission Exam Per Admitting Provider General- Not in distress Head- atraumatic Eyes- PERRL. ENT- oropharynx clear Neck- supple, no JVD. Lungs- clear to auscultation no wheezing or crackles. Heart- regular rhythm; no murmur, no gallop. Abdomen- normal bowel sounds, soft, nontender, no distension Extremities- no pretibial edema, no erythema seen Neuro- alert, oriented x 3; PERRL, no facial palsy; no dysarthria; moves extremities Discharge Exam General- oriented x 1-2, not in distress, speaks in sentences with no effort or accessory muscle use Eyes- anicteric Neck- no JVD Lungs- clear breath sounds bilaterally, no rales/wheezes Heart- normal rate, regular rhythm; no murmurs Abdomen- normal bowel sounds, nondistended, soft, nontender Extremities- no pretibial edema, no calf tenderness Neuro- alert, oriented x 1-2; no gross focal neurologic deficits Skin- warm & dry Updated Medication List Medication Instructions Recorded Confirmed Type famotidine 20 mg tablet (Pepcid) 20 mg PO BID PRN Heartburn 09/30/18 02/26/25 History omega 6-wrr-zes-fish oil 1,000 mg 3 cap PO QAM 09/30/18 02/26/25 History (120 mg-180 mg) capsule (Fish Oil) tamsulosin 0.4 mg capsule 0.4 mg PO DAILY 01/25/21 02/26/25 History pimavanserin 34 mg capsule 34 mg PO DAILY 10/28/24 02/26/25 History calcium 600 mg (as 1 tab PO QAM 01/29/25 02/26/25 History carbonate)-vitamin D3 10 mcg (400 unit) tablet (Calcium 600 + D(3)) psyllium husk 3.4 gram/5.4 gram 1 tbsp PO DAILY 02/01/25 02/26/25 History oral powder (Metamucil) melatonin 10 mg capsule 10 mg PO HS PRN Sleep 02/15/25 02/26/25 History leuprolide (3 month) 22.5 mg (3 22.5 mg subcut ONCE #1 ea 02/25/25 02/26/25 Rx month) subcutaneous syringe polyethylene glycol 3350 17 gram 17 g PO DAILY Constipation #0 ea 03/11/25 02/26/25 Rx oral powder packet (Miralax) Hospital Stay Data Consultations 02/26/25 03:36 ED Decision to Admit Stat Diagnostic Imagining Performed Laboratory Results WBC 5.93 K/ul (4.8-10.8) 03/10/25 08:06 RBC 4.23 M/uL (4.70-6.10) L 03/10/25 08:06 Hgb 14.2 g/dl (14.0-18.0) 03/10/25 08:06 Hct 40.5 % (42.0-52.0) L 03/10/25 08:06 MCV 95.7 fL (80.0-100.0) 03/10/25 08:06 MCH 33.6 pg (25.0-34.0) 03/10/25 08:06 MCHC 35.1 g/dL (32.0-36.0) 03/10/25 08:06 RDW Std Deviation 44.9 fL (36.4-46.3) 03/10/25 08:06 RDW Coeff of Keo 12.6 % (11.5-14.5) 03/10/25 08:06 Plt Count 223 K/uL (130-400) 03/10/25 08:06 MPV 9.2 fL (9.4-12.4) L 03/10/25 08:06 Immature Gran % (Auto) 0.3 % 03/03/25 07:35 Neut % (Auto) 80.0 % 03/03/25 07:35 Lymph % (Auto) 5.4 % 03/03/25 07:35 Owen % (Auto) 10.3 % 03/03/25 07:35 Eos % (Auto) 2.9 % 03/03/25 07:35 Baso % (Auto) 1.1 % 03/03/25 07:35 Neut # (Auto) 5.18 K/uL (1.40-6.50) 03/03/25 07:35 Lymph # (Auto) 0.35 K/uL (1.20-3.40) L 03/03/25 07:35 Owen # (Auto) 0.67 K/uL (0.11-0.59) H 03/03/25 07:35 Eos # (Auto) 0.19 K/uL (0.00-0.50) 03/03/25 07:35 Baso # (Auto) 0.07 K/uL (0.00-0.20) 03/03/25 07:35 Immature Gran # (Auto) 0.02 K/uL (0.01-0.20) 03/03/25 07:35 Sodium 139 mmol/L (136-145) 03/10/25 08:06 Potassium 4.2 mmol/L (3.5-5.1) 03/10/25 08:06 Chloride 106 mmol/L (98-107) 03/10/25 08:06 Carbon Dioxide 26 mmol/L (21-32) 03/10/25 08:06 Anion Gap 7 (3-11) 03/10/25 08:06 BUN 21 mg/dl (6-23) 03/10/25 08:06 Creatinine 1.31 mg/dl (0.6-1.4) 03/10/25 08:06 Est Cr Clr Drug Dosing 61.6 ml/min 03/10/25 08:06 eGFR 58.19 03/10/25 08:06 BUN/Creatinine Ratio 16.0 (10-20) 03/10/25 08:06 Glucose 101 mg/dl (70-99(Fasting)) H 03/10/25 08:06 Lactate 1.1 mmol/L (0.4-2.0) 02/26/25 01:40 Calcium 9.1 mg/dl (8.6-10.3) 03/10/25 08:06 Phosphorus 3.4 mg/dl (2.5-4.9) 03/09/25 10:54 Magnesium 2.3 mg/dl (1.7-2.4) 03/09/25 10:54 Total Bilirubin 0.5 mg/dl (0.2-1.0) 02/26/25 01:35 AST 21 U/L (13-39) 02/26/25 01:35 ALT 22 U/L (7-52) 02/26/25 01:35 Alkaline Phosphatase 50 U/L (34-104) 02/26/25 01:35 Ammonia 29.0 umol/L (18-72) 02/26/25 01:58 Troponin I High Sens 4.3 pg/ml (0-20) 02/26/25 01:35 Total Protein 7.0 gm/dl (6.0-8.3) 02/26/25 01:35 Albumin 4.1 gm/dl (3.4-5.0) 02/26/25 01:35 Globulin 2.9 gm/dl (2.5-4.0) 02/26/25 01:35 Albumin/Globulin Ratio 1.4 (0.9-2) 02/26/25 01:35 Lipase 31 U/L (11-82) 02/26/25 01:35 Urine Color See Comment 03/09/25 Unknown Urine Appearance Clear (Clear) 03/09/25 Unknown Urine pH Not Reportable 03/09/25 Unknown Ur Specific [place] 1.019 (1.000-1.030) 03/09/25 Unknown Urine Protein Not Reportable 03/09/25 Unknown Urine Glucose (UA) Not Reportable 03/09/25 Unknown Urine Ketones Not Reportable 03/09/25 Unknown Urine Blood Not Reportable 03/09/25 Unknown Urine Nitrite Not Reportable 03/09/25 Unknown Urine Bilirubin Not Reportable 03/09/25 Unknown Urine Urobilinogen Not Reportable 03/09/25 Unknown Ur Leukocyte Esterase Not Reportable 03/09/25 Unknown Urine WBC (Auto) >50 /hpf (0-5) H 02/26/25 01:52 Urine RBC (Auto) >20 /hpf (0-2) H 02/26/25 01:52 U Hyaline Cast (Auto) 3-5 /lpf (0-2) H 02/26/25 01:52 U Epithel Cells (Auto) 0-2 /hpf (0-2) 02/26/25 01:52 Urine Bacteria (Auto) None Seen (None Seen) 02/26/25 01:52 Urine RBC >20 /hpf (0-2) H 03/09/25 Unknown Urine WBC 21-50 /hpf (0-5) H 03/09/25 Unknown Ur Epithelial Cells 0-2 /hpf (0-2) 03/09/25 Unknown Urine Bacteria None Seen (None Seen) 03/09/25 Unknown Urine Mucus Present (None Prsent) A 03/09/25 Unknown Urine Comment 03/09/25 Unknown Ethyl Alcohol mg/dL < 10.0 mg/dl (<10.0) 02/26/25 01:[address] 03/04/25 17:26 CT head without contrast History: Confusion Comparison: None Technique: Using multidetector thin collimation helical acquisition technique, axial, coronal and sagittal CT images from the skull base to the vertex were obtained without intravenous contrast. Dose reduction techniques were achieved by using automatic exposure control and/or adjustment of mA and/or kV according to patient size and/or use of iterative reconstruction technique. Findings: No intracranial hemorrhage, mass-effect, or midline shift. The ventricles are proportionate to the cerebral sulci. The barrow to white matter differentiation of the cerebral hemispheres is preserved. The basal cisterns are patent. The visualized paranasal sinuses are clear. Mastoid air cells are clear. Impression: No acute intracranial pathology. Electronically signed by Teddy Barrios 03-04-2025 6:22 PM Pending Results Patient Have Any Pending Studies at Discharge: No Discharge Instructions Given to Patient (Per Discharging Provider) You were admitted for confusion and treated for a urine infection. You completed 10 days of antibiotics. You were struggling to empty your bladder completely after cox removal, therefore cox catheter was placed 03/10. You will follow up with Urology to discuss removal. Total Time Total Time Spent Total Time Spent (In Minutes): 35 minutes
== END 2025-03-12 09:29 | DRG 699 ==
LOC: ED 01:26 → EDINP 04:44 → SUATTDRO 04:44 → 3N 08:56 → 3W 19:58

== ENCOUNTER 2025-04-10 16:27 | Inpatient (IN) ==
[2025-04-10 17:01] LABS: Hematocrit (blood only) 39.2 % (42.0-52.0); Hemoglobin 13.5 g/dl (14.0-18.0); Immature Granulocytes # (auto) 0.07 K/uL (0.01-0.20); Immature Granulocytes % (auto) 0.5 %; Mean Corpuscular Hemoglobin 32.9 pg (25.0-34.0); Mean Corpuscular Volume 95.6 fL (80.0-100.0); Platelet Count 217 K/uL (130-400); RDW Standard Deviation 45.0 fL (36.4-46.3); Red Blood Count 4.10 M/uL (4.70-6.10); White Blood Count 13.22 K/ul (4.8-10.8)
--- NOTE | 2025-04-10 17:07 | Emergency Department Note ---
Impression & Plan Acute UTI, Confusion, Chronic indwelling Fontanez catheter ED Provider Note Provider: Abdelrahman Fuentes MD CHIEF COMPLAINT: Increased confusion HISTORY OF PRESENT ILLNESS: Patient is a 69-year-old gentleman unfortunate history of Lewy body dementia chronic Fontanez related to retention and history of prostate cancer presenting here with brother reporting over the last 2 days or so increased confusion and acting off. No fevers or trauma reported. Patient has been eating or drinking By report without significant abdominal pain or vomiting. Brothers have concern the patient is developing a UTI again is a similar to his recent hospitalization last month for similar. Urine output in Fontanez has been darker. Catheter was changed this past week by home nursing on Saturday. No chest pain or breathing difficulty reported. Has some more of a shuffling gait according to family. PAST MEDICAL HISTORY: As noted above MEDICATIONS: Reviewed home medications SOCIAL HISTORY: Lives at home with brother PHYSICAL EXAM: GENERAL: alert and oriented in no acute distress on stretcher Head: normocephalic and atraumatic EYES: No injection, discharge or icterus. EOMI. NECK: Trachea midline. ENT: Mucous membranes pink and moist. LUNGS: Airway patent. No retractions. Breath sounds clear HEART: Regular rate and rhythm. No chest wall tenderness ABDOMEN: Soft and non-tender, without guarding or rebound. Fontanez catheter in place with some purulence at the meatus around the Fontanez. SKIN: Acyanotic, warm, dry, without rashes EXTREMITIES: Without swelling, tenderness or deformity NEUROLOGICAL: No focal deficits moving all extremities. No aphasia. No facial droop or slurred speech. Ambulatory. EK bpm normal sinus rhythm. No PVC or PAC. No acute ST segment elevation depression QTc 460. CONTINUOUS CARDIAC MONITORING: was ordered and showed a heart rate of 80s bpm in normal sinus rhythm Patient's laboratory studies and imaging reviewed. Differential includes Infection/UTI, dehydration, metabolic abnormality, hypo/hyperglycemia, electrolyte disturbance, anemia, hypoxia, cardiac sources, intracerebral event, toxicologic, neurologic, as well as other pathologies. IMPRESSION/MEDICAL DECISION MAKING: Patient history of dementia and similar presentation in the past with UTI. Reviewed prior culture results history of MSSA and oxacillin resistant staph epi. Patient with chronic indwelling Fontanez recently changed to superior Purulence around the meatus of the Fontanez today. Will change this and send a new sample. Blood work is sent cultures and lactate are ordered. Vitals are reassuring however there is no fever reported. Again no trauma reported. Patient without focal deficit but generalized weakness and some increased confusion. She did have an abundance of caution was completed but seems less likely CVA. Blood work is indicative of a increased leukocytosis of 13 today. No significant anemia or thrombocytopenia. Benign abdomen doubt significant tenderness and doubt acute intra-abdominal process or kidney stone. Based on prior microbiology, cover empirically with daptomycin and cefepime. IV fluid 1 L ordered. Blood cultures are sent. Lactate normal 0.6. No electrolyte abnormal signs or renal dysfunction. No transaminitis. Urinalysis grossly positive signs of infection again has received cefepime and daptomycin. Negative COVID flu RSV test. CT of the head per my review without findings of acute intracranial abnormality or bleed. Discussed with patient and family at bedside. Will bring in for further antibiotic therapy until culture results specially with his behavioral change. Family does relate the patient does not do well with sedatives and that can make him more delirious. Discussed with the hospitalist team. DIAGNOSIS: Increased confusion, UTI with chronic indwelling Fontanez DISPOSITION: Hospitalist will evaluate Patient was agreeable with this plan. Past Med/Surg History Problem List (Updated 04/10/25 @ 19:14 by Paul Cesar MD) Lewy body dementia Acute metabolic encephalopathy Chronic indwelling Fontanez catheter (Acute) Confusion (Acute) Acute UTI (Acute) Dysuria Prostate cancer (Chronic 09/28/24) Elevated PSA BPH NOS w ur obs/LUTS COVID-19 Pneumonia due to COVID-19 virus GERD (gastroesophageal reflux disease) Hyperlipidemia Medical History BPH (benign prostatic hyperplasia) Surgical History H/O prostate biopsy History of cataract surgery LEFT. 10/07/2018. 2mg versed. no issues. Status post trigger finger release RT History of carpal tunnel release of both wrists History of colonoscopy Family History Father Family history of diabetes mellitus Mother Family history of diabetes mellitus Brother Cancer Prostate Social History Smoking Status: Never smoker Tobacco Type: Cigarettes Second Hand Exposure: No; Do You Dip or Chew Tobacco: No; Hx Alcohol Use: No Hx Substance Use: No Preferred Language: Sinhala Communication Ability: Effective Visual Impairment: No Limitations Hearing Ability: Hard of Hearing Historian Research Assistant Required: No Beliefs That Will Affect Care: Spiritual marital status: Single Current Living Situation: Family Current Living Situation Comment: lives with brother Feels Safe at Home: Yes Diet: regular during the past year weight has: remained stable Assistive Devices: Cane and Walker Allergies Allergies Allergy/AdvReac Type Severity Reaction Status Date / Time quetiapine [From Seroquel] AdvReac Severe PSYCHOSIS Verified 04/10/25 18:02 aspirin AdvReac Intermediate Nose Bleed Verified 04/10/25 18:02 diclofenac AdvReac Intermediate STOMACH Verified 04/10/25 18:02 PAIN lisinopril AdvReac Intermediate Cough Verified 04/10/25 18:02 naproxen AdvReac Intermediate BLEEDING Verified 04/10/25 18:02 FROM RECTUM Home Meds Home Medications Medication Instructions Recorded Confirmed famotidine 20 mg tablet (Pepcid) 20 mg PO BID PRN Heartburn 09/30/18 04/10/25 omega 8-kpd-sop-fish oil 1,000 mg 3 cap PO QAM 09/30/18 04/10/25 (120 mg-180 mg) capsule (Fish Oil) tamsulosin 0.4 mg capsule 0.4 mg PO DAILY 01/25/21 04/10/25 calcium 600 mg (as 1 tab PO QAM 01/29/25 04/10/25 carbonate)-vitamin D3 10 mcg (400 unit) tablet (Calcium 600 + D(3)) psyllium husk 3.4 gram/5.4 gram 1 tbsp PO DAILY 02/01/25 04/10/25 oral powder (Metamucil) melatonin 10 mg capsule 10 mg PO HS PRN Sleep 02/15/25 04/10/25 acetaminophen 500 mg tablet 500 mg PO Q6H PRN PAIN/FEVER 04/10/25 04/10/25 (Tylenol Extra Strength) cholecalciferol (vitamin D3) 50 50 mcg PO DAILY 04/10/25 04/10/25 mcg (2,000 unit) capsule (Vitamin D3) lidocaine 4 % topical spray 1 spray topical QID PRN Pain 04/10/25 04/10/25 pimavanserin 34 mg capsule 34 mg PO QAM 04/10/25 04/10/25 (Nuplazid) Results & Data (ED) Vital Signs Vital Signs - 24 hr 04/10/25 16:31 04/10/25 17:09 04/10/25 17:14 Temperature 36.8 C Temperature Source Temporal Artery Scan Pulse Rate 88 81 80 Pulse Rate [Apical] Pulse Rate from SpO2 Sensor 80 Pulse Rhythm [Apical] Pulse Strength [Apical] Respiratory Rate 20 20 Respiratory Effort / Characteristics Non-Labored Spontaneous Respiratory Depth Normal Respiratory Pattern Blood Pressure 117/74 Blood Pressure [Right Arm] Blood Pressure Mean 88 Blood Pressure Mean [Right Arm] Pulse Oximetry 97 100 Oxygen Delivery Method Room Air Sepsis Recent Fever Within 48 Hours No Sepsis New/Unexplained Change in Mental Status N/A Sepsis Action Taken by Nursing No Action Required 04/10/25 17:35 04/10/25 18:02 04/10/25 18:18 Temperature Temperature Source Pulse Rate 83 80 79 Pulse Rate [Apical] Pulse Rate from SpO2 Sensor 83 79 Pulse Rhythm [Apical] Pulse Strength [Apical] Respiratory Rate 19 21 19 Respiratory Effort / Characteristics Respiratory Depth Respiratory Pattern Blood Pressure Blood Pressure [Right Arm] Blood Pressure Mean Blood Pressure Mean [Right Arm] Pulse Oximetry 97 96 Oxygen Delivery Method Sepsis Recent Fever Within 48 Hours Sepsis New/Unexplained Change in Mental Status Sepsis Action Taken by Nursing 04/10/25 18:25 04/10/25 18:26 04/10/25 18:30 Temperature Temperature Source Pulse Rate Pulse Rate [Apical] 80 Pulse Rate from SpO2 Sensor Pulse Rhythm [Apical] Regular Pulse Strength [Apical] Normal Respiratory Rate 18 Respiratory Effort / Characteristics Non-Labored Spontaneous Respiratory Depth Normal Respiratory Pattern Regular Blood Pressure 114/75 131/107 H Blood Pressure [Right Arm] 114/75 Blood Pressure Mean 96 111 Blood Pressure Mean [Right Arm] 88 Pulse Oximetry 96 Oxygen Delivery Method Room Air Sepsis Recent Fever Within 48 Hours Sepsis New/Unexplained Change in Mental Status Sepsis Action Taken by Nursing 04/10/25 18:32 04/10/25 18:59 04/10/25 19:00 Temperature Temperature Source Pulse Rate 79 77 Pulse Rate [Apical] Pulse Rate from SpO2 Sensor 78 77 Pulse Rhythm [Apical] Pulse Strength [Apical] Respiratory Rate 18 21 Respiratory Effort / Characteristics Respiratory Depth Respiratory Pattern Blood Pressure 123/71 Blood Pressure [Right Arm] Blood Pressure Mean 82 Blood Pressure Mean [Right Arm] Pulse Oximetry 95 97 Oxygen Delivery Method Sepsis Recent Fever Within 48 Hours Sepsis New/Unexplained Change in Mental Status Sepsis Action Taken by Nursing 04/10/25 19:00 04/10/25 19:02 04/10/25 19:15 Temperature Temperature Source Pulse Rate 77 74 Pulse Rate [Apical] Pulse Rate from SpO2 Sensor 78 74 Pulse Rhythm [Apical] Pulse Strength [Apical] Respiratory Rate 20 17 Respiratory Effort / Characteristics Respiratory Depth Respiratory Pattern Blood Pressure 123/71 Blood Pressure [Right Arm] Blood Pressure Mean 82 Blood Pressure Mean [Right Arm] Pulse Oximetry 98 100 Oxygen Delivery Method Sepsis Recent Fever Within 48 Hours Sepsis New/Unexplained Change in Mental Status Sepsis Action Taken by Nursing 04/10/25 19:30 04/10/25 19:38 04/10/25 19:47 Temperature Temperature Source Pulse Rate 75 74 Pulse Rate [Apical] Pulse Rate from SpO2 Sensor 75 74 Pulse Rhythm [Apical] Pulse Strength [Apical] Respiratory Rate 18 23 Respiratory Effort / Characteristics Respiratory Depth Respiratory Pattern Blood Pressure 134/80 Blood Pressure [Right Arm] Blood Pressure Mean 117 Blood Pressure Mean [Right Arm] Pulse Oximetry 98 94 Oxygen Delivery Method Sepsis Recent Fever Within 48 Hours Sepsis New/Unexplained Change in Mental Status Sepsis Action Taken by Nursing 04/10/25 20:00 04/10/25 20:00 04/10/25 20:05 Temperature Temperature Source Pulse Rate 75 Pulse Rate [Apical] Pulse Rate from SpO2 Sensor 74 Pulse Rhythm [Apical] Pulse Strength [Apical] Respiratory Rate 23 Respiratory Effort / Characteristics Respiratory Depth Respiratory Pattern Blood Pressure 137/85 137/85 Blood Pressure [Right Arm] Blood Pressure Mean 100 100 Blood Pressure Mean [Right Arm] Pulse Oximetry 96 Oxygen Delivery Method Sepsis Recent Fever Within 48 Hours Sepsis New/Unexplained Change in Mental Status Sepsis Action Taken by Nursing 04/10/25 20:26 04/10/25 20:30 04/10/25 20:39 Temperature Temperature Source Pulse Rate 76 76 Pulse Rate [Apical] Pulse Rate from SpO2 Sensor 76 76 Pulse Rhythm [Apical] Pulse Strength [Apical] Respiratory Rate 24 21 Respiratory Effort / Characteristics Respiratory Depth Respiratory Pattern Blood Pressure 118/76 Blood Pressure [Right Arm] Blood Pressure Mean 88 Blood Pressure Mean [Right Arm] Pulse Oximetry 91 96 Oxygen Delivery Method Sepsis Recent Fever Within 48 Hours Sepsis New/Unexplained Change in Mental Status Sepsis Action Taken by Nursing 04/10/25 21:05 Temperature Temperature Source Pulse Rate 75 Pulse Rate [Apical] Pulse Rate from SpO2 Sensor Pulse Rhythm [Apical] Pulse Strength [Apical] Respiratory Rate Respiratory Effort / Characteristics Respiratory Depth Respiratory Pattern Blood Pressure Blood Pressure [Right Arm] Blood Pressure Mean Blood Pressure Mean [Right Arm] Pulse Oximetry Oxygen Delivery Method Sepsis Recent Fever Within 48 Hours Sepsis New/Unexplained Change in Mental Status Sepsis Action Taken by Nursing Laboratory Data 04/10/25 16:44 04/10/25 16:44 Lab Results 04/10/25 04/10/25 04/10/25 Range/Units 16:44 17:36 17:45 WBC 13.22 H (4.8-10.8) K/ul RBC 4.10 L (4.70-6.10) M/uL Hgb 13.5 L (14.0-18.0) g/dl Hct 39.2 L (42.0-52.0) % MCV 95.6 (80.0-100.0) fL MCH 32.9 (25.0-34.0) pg MCHC 34.4 (32.0-36.0) g/dL RDW Std Deviation 45.0 (36.4-46.3) fL RDW Coeff of [place] 12.9 (11.5-14.5) % Plt Count 217 (130-400) K/uL MPV 9.4 (9.4-12.4) fL Immature Gran % (Auto) 0.5 % Neut % (Auto) 85.2 % Lymph % (Auto) 3.9 % [place] % (Auto) 9.0 % Eos % (Auto) 0.9 % Baso % (Auto) 0.5 % Neut # (Auto) 11.27 H (1.40-6.50) K/uL Lymph # (Auto) 0.51 L (1.20-3.40) K/uL [place] # (Auto) 1.19 H (0.11-0.59) K/uL Eos # (Auto) 0.12 (0.00-0.50) K/uL Baso # (Auto) 0.06 (0.00-0.20) K/uL Immature Gran # (Auto) 0.07 (0.01-0.20) K/uL Sodium 137 (136-145) mmol/L Potassium 3.7 (3.5-5.1) mmol/L Chloride 103 (98-107) mmol/L Carbon Dioxide 25 (21-32) mmol/L Anion Gap 9 (3-11) BUN 16 (6-23) mg/dl Creatinine 0.81 (0.6-1.4) mg/dl Est Cr Clr Drug Dosing 100.6 ml/min eGFR 94.26 BUN/Creatinine Ratio 19.8 (10-20) Glucose 128 H (70-99(Fasting)) mg/dl Lactate 0.6 (0.4-2.0) mmol/L Calcium 9.3 (8.6-10.3) mg/dl Total Bilirubin 0.6 (0.2-1.0) mg/dl AST 22 (13-39) U/L ALT 28 (7-52) U/L Alkaline Phosphatase 60 (34-104) U/L Total Protein 7.6 (6.0-8.3) gm/dl Albumin 4.0 (3.4-5.0) gm/dl Globulin 3.6 (2.5-4.0) gm/dl Albumin/Globulin Ratio 1.1 (0.9-2) Procalcitonin 0.05 (0-0.5) ng/ml Urine Color Yellow Urine Appearance Turbid A (Clear) Urine pH 6.0 (4.5-7.5) Ur Specific [place] 1.025 (1.000-1.030) Urine Protein 3+ H (Negative) Urine Glucose (UA) Negative (Negative) Urine Ketones Negative (Negative) Urine Blood 3+ H (Negative) Urine Nitrite Negative (Negative) Urine Bilirubin Negative (Negative) Urine Urobilinogen Negative (Negative) Ur Leukocyte Esterase 3+ H (Negative) Urine WBC (Auto) >50 H (0-5) /hpf Urine RBC (Auto) >20 H (0-2) /hpf U Hyaline Cast (Auto) 11-20 H (0-2) /lpf U Epithel Cells (Auto) 0-2 (0-2) /hpf Urine Bacteria (Auto) 1+ H (None Seen) Urine Comment SARS-CoV-2 (PCR) (Negative) Influenza Type A (PCR) (Neg) Influenza Type B (PCR) (Neg) RSV (RT-PCR) (Neg) 04/10/25 Range/Units 17:50 WBC (4.8-10.8) K/ul RBC (4.70-6.10) M/uL Hgb (14.0-18.0) g/dl Hct (42.0-52.0) % MCV (80.0-100.0) fL MCH (25.0-34.0) pg MCHC (32.0-36.0) g/dL RDW Std Deviation (36.4-46.3) fL RDW Coeff of Keo (11.5-14.5) % Plt Count (130-400) K/uL MPV (9.4-12.4) fL Immature Gran % (Auto) % Neut % (Auto) % Lymph % (Auto) % [place] % (Auto) % Eos % (Auto) % Baso % (Auto) % Neut # (Auto) (1.40-6.50) K/uL Lymph # (Auto) (1.20-3.40) K/uL [place] # (Auto) (0.11-0.59) K/uL Eos # (Auto) (0.00-0.50) K/uL Baso # (Auto) (0.00-0.20) K/uL Immature Gran # (Auto) (0.01-0.20) K/uL Sodium (136-145) mmol/L Potassium (3.5-5.1) mmol/L Chloride (98-107) mmol/L Carbon Dioxide (21-32) mmol/L Anion Gap (3-11) BUN (6-23) mg/dl Creatinine (0.6-1.4) mg/dl Est Cr Clr Drug Dosing ml/min eGFR BUN/Creatinine Ratio (10-20) Glucose (70-99(Fasting)) mg/dl Lactate (0.4-2.0) mmol/L Calcium (8.6-10.3) mg/dl Total Bilirubin (0.2-1.0) mg/dl AST (13-39) U/L ALT (7-52) U/L Alkaline Phosphatase (34-104) U/L Total Protein (6.0-8.3) gm/dl Albumin (3.4-5.0) gm/dl Globulin (2.5-4.0) gm/dl Albumin/Globulin Ratio (0.9-2) Procalcitonin (0-0.5) ng/ml Urine Color Urine Appearance (Clear) Urine pH (4.5-7.5) Ur Specific [place] (1.000-1.030) Urine Protein (Negative) Urine Glucose (UA) (Negative) Urine Ketones (Negative) Urine Blood (Negative) Urine Nitrite (Negative) Urine Bilirubin (Negative) Urine Urobilinogen (Negative) Ur Leukocyte Esterase (Negative) Urine WBC (Auto) (0-5) /hpf Urine RBC (Auto) (0-2) /hpf U Hyaline Cast (Auto) (0-2) /lpf U Epithel Cells (Auto) (0-2) /hpf Urine Bacteria (Auto) (None Seen) Urine Comment SARS-CoV-2 (PCR) NEGATIVE (Negative) Influenza Type A (PCR) Negative (Neg) Influenza Type B (PCR) Negative (Neg) RSV (RT-PCR) Negative (Neg) Administered Medications Enoxaparin Sodium (Enoxaparin Inj 40 Mg/0.4 Ml Syr) 40 mg SQ QAM EUGENE Stop: 05/10/25 19:14 Last Admin: 04/10/25 20:04 Dose: 40 mg Documented By: rich Discontinued Medications Sodium Chloride (Nss) 1,000 mls @ 999 mls/hr IV .Q1H1M ONE Stop: 04/10/25 18:03 Last Infusion: 04/10/25 18:24 Dose: Infused Documented By: rich Admin: 04/10/25 17:09 Dose: 999 mls/hr Documented By: rich Daptomycin 750 mg/ Syringe 15 mls @ 7.5 mls/min IV NOW ONE; Protocol Stop: 04/10/25 17:16 Last Admin: 04/10/25 18:26 Dose: 7.5 mls/min Documented By: rich Cefepime HCl (Maxipime 2000mg) 2,000 mg in 20 mls @ 5 mls/min IV NOW STA; Protocol Stop: 04/10/25 17:08 Last Admin: 04/10/25 17:45 Dose: 5 mls/min Documented By: rich Imaging Data Radiologist's Impression: Head CT 04/10/25 17:07 CT head without contrast History: Confusion Comparison: 03/04/2025 Technique: Using multidetector thin collimation helical acquisition technique, axial, coronal and sagittal CT images from the skull base to the vertex were obtained without intravenous contrast. Dose reduction techniques were achieved by using automatic exposure control and/or adjustment of mA and/or kV according to patient size and/or use of iterative reconstruction technique. Findings: No intracranial hemorrhage, mass-effect, or midline shift. The ventricles are proportionate to the cerebral sulci. The barrow to white matter differentiation of the cerebral hemispheres is preserved. The basal cisterns are patent. The visualized paranasal sinuses are clear. Mastoid air cells are clear. Impression: No acute intracranial pathology. Electronically signed by Teddy Barrios 04-10-2025 6:59 PM Discharge Plan Visit Data Chief Complaint: Urinary Symptoms Stated Complaint: UTI ED Provider: Abdelrahman Fuentes Discharge Problem: Acute UTI, Confusion, Chronic indwelling Fontanez catheter Patient Disposition: Being Evaluated by Hospitalist Condition: Fair Forms Stand Alone Forms: My [facility] Prescriptions Prescriptions: No Action Metamucil 3.4 gram/5.4 gram powder 1 tbsp PO DAILY Rx Instructions: mix into at least 8 oz of water or juice before administering melatonin 10 mg capsule 10 mg PO HS PRN (Reason: Sleep) famotidine [Pepcid] 20 mg Tablet 20 mg PO BID PRN (Reason: Heartburn) omega 3-ynx-tno-fish oil [Fish Oil] 1,000 mg (120 mg-180 mg) Capsule 3 cap PO QAM tamsulosin 0.4 mg capsule 0.4 mg PO DAILY calcium carbonate-vitamin D3 [Calcium 600 + D(3)] 600 mg-10 mcg (400 unit) Tablet 1 tab PO QAM acetaminophen [Tylenol Extra Strength] 500 mg Tablet 500 mg PO Q6H PRN (Reason: PAIN/FEVER) cholecalciferol (vitamin D3) [Vitamin D3] 50 mcg (2,000 unit) Capsule 50 mcg PO DAILY Nuplazid 34 mg capsule 34 mg PO QAM Rx Instructions: PT'S FAMILY WILL BRING IN MED IF ADMITTED, D/T SPECIALITY MED. lidocaine 4 % Aerosol,[place] 1 spray TOPICAL QID PRN (Reason: Pain) Referrals Referrals: Chema Lackey MD [Primary Care Provider] -
[2025-04-10] MEDS: SODIUM CHLORIDE 0.9% 1,000 ML IV ONE (17:09)
[2025-04-10 17:19] LABS: Alanine Aminotransferase 28.0 U/L (7-52); Albumin Globulin Ratio 1.1 (0.9-2); Alkaline Phosphatase 60.0 U/L (34-104); Anion Gap 9.0 (3-11); Bilirubin,Total 0.6 mg/dl (0.2-1.0); Blood Urea Nitrogen 16.0 mg/dl (6-23); Calcium 9.3 mg/dl (8.6-10.3); Carbon Dioxide 25.0 mmol/L (21-32); Chloride 103.0 mmol/L (98-107); Creatinine Clr Calc Pharmacy 100.6 ml/min; Globulin 3.6 gm/dl (2.5-4.0); Glucose 128.0 mg/dl (70-99(Fasting)); Potassium 3.7 mmol/L (3.5-5.1); Sodium 137.0 mmol/L (136-145); Total Protein 7.6 gm/dl (6.0-8.3)
[2025-04-10] MEDS: CEFEPIME 2000MG 2,000 MG/20 ML SYR IV STA (17:45)
[2025-04-10 18:16] LABS: Appearance Urine Turbid (Clear); Bacteria Urine Automated 1+ (None Seen); Epithelial Cell Urine Auto 0-2 /hpf (0-2); Glucose Urine UA Negative (Negative); RBC Urine Automated >20 /hpf (0-2); WBC Urine Automated >50 /hpf (0-5)
[2025-04-10] MEDS: DAPTOmycin 750 MG in SYRINGE 0 ML IV ONE (18:26)
[2025-04-10 18:38] LABS: Influenza A virus by PCR Negative (Neg); Influenza B virus by PCR Negative (Neg); SARS CoV2 RNA(COVID-19) Ceph NEGATIVE (Negative)
--- NOTE | 2025-04-10 19:04 | CT Scan Report ---
CT head without contrast History: Confusion Comparison: 03/04/2025 Technique: Using multidetector thin collimation helical acquisition technique, axial, coronal and sagittal CT images from the skull base to the vertex were obtained without intravenous contrast. Dose reduction techniques were achieved by using automatic exposure control and/or adjustment of mA and/or kV according to patient size and/or use of iterative reconstruction technique. Findings: No intracranial hemorrhage, mass-effect, or midline shift. The ventricles are proportionate to the cerebral sulci. The barrow to white matter differentiation of the cerebral hemispheres is preserved. The basal cisterns are patent. The visualized paranasal sinuses are clear. Mastoid air cells are clear. Impression: No acute intracranial pathology. Electronically signed by Teddy Barrios 04-10-2025 6:59 PM
--- NOTE | 2025-04-10 19:17 | History & Physical Report ---
Date of Service April 10, 2025 Assessment & Plan (1) Acute metabolic encephalopathy: Plan: Noted to be generally weak and more confused with history of liver dementia Noted to have UTI Urine culture and Blood Culture were sent and started on intravenous Cefepime and Daptomycin Will give cautious amount of intravenous fluid and he was advised to drink more fluid (2) Acute UTI: Plan: History of chronic Fontanez with recurrent UTI Has complicated UTI secondary to chronic Fontanez Urine culture was sent as above and will continue with Cefepime and Daptomycin (3) Chronic indwelling Fontanez catheter: Plan: B1 due to prostate cancer (4) Prostate cancer: (5) Hyperlipidemia: Plan: Seen (6) BPH (benign prostatic hyperplasia): Plan: Polish Current medication unremarkable clinic visit (7) Lewy body dementia: Plan DVT prophylaxis Lovenox Code Status Full History of Present Illness Chief Complaint: Weakness for the last 2 or 3 days and noted to have more confusion for the same. 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 Urine noted to be darker in color as well. No fever and/or chills. No nausea no vomiting. Noted to be afebrile in the emergency room with minimally elevated white count of 13,000 and UA suggestive of infection. He was started with intravenous ceftriaxone and was admitted to medical floor for continued care. Allergies Allergy/AdvReac Type Severity Reaction Status Date / Time quetiapine [From Seroquel] AdvReac Severe PSYCHOSIS Verified 04/10/25 18:02 aspirin AdvReac Intermediate Nose Bleed Verified 04/10/25 18:02 diclofenac AdvReac Intermediate STOMACH Verified 04/10/25 18:02 PAIN lisinopril AdvReac Intermediate Cough Verified 04/10/25 18:02 naproxen AdvReac Intermediate BLEEDING Verified 04/10/25 18:02 FROM RECTUM Home Medications Medication Instructions Recorded Confirmed Type famotidine 20 mg tablet (Pepcid) 20 mg PO BID PRN Heartburn 09/30/18 04/10/25 History omega 1-bpr-iys-fish oil 1,000 mg 3 cap PO QAM 09/30/18 04/10/25 History (120 mg-180 mg) capsule (Fish Oil) tamsulosin 0.4 mg capsule 0.4 mg PO DAILY 01/25/21 04/10/25 History calcium 600 mg (as 1 tab PO QAM 01/29/25 04/10/25 History carbonate)-vitamin D3 10 mcg (400 unit) tablet (Calcium 600 + D(3)) psyllium husk 3.4 gram/5.4 gram 1 tbsp PO DAILY 02/01/25 04/10/25 History oral powder (Metamucil) melatonin 10 mg capsule 10 mg PO HS PRN Sleep 02/15/25 04/10/25 History acetaminophen 500 mg tablet 500 mg PO Q6H PRN PAIN/FEVER 04/10/25 04/10/25 History (Tylenol Extra Strength) cholecalciferol (vitamin D3) 50 50 mcg PO DAILY 04/10/25 04/10/25 History mcg (2,000 unit) capsule (Vitamin D3) lidocaine 4 % topical spray 1 spray topical QID PRN Pain 04/10/25 04/10/25 History pimavanserin 34 mg capsule 34 mg PO QAM 04/10/25 04/10/25 History (Nuplazid) Past Med/Surg History Problem List (Updated 04/10/25 @ 19:14 by Paul Cesar MD) Lewy body dementia Acute metabolic encephalopathy Chronic indwelling Fontanez catheter (Acute) Confusion (Acute) Acute UTI (Acute) Dysuria Prostate cancer (Chronic 09/28/24) Elevated PSA BPH NOS w ur obs/LUTS COVID-19 Pneumonia due to COVID-19 virus GERD (gastroesophageal reflux disease) Hyperlipidemia Medical History BPH (benign prostatic hyperplasia) Surgical History H/O prostate biopsy History of cataract surgery LEFT. 10/07/2018. 2mg versed. no issues. Status post trigger finger release RT History of carpal tunnel release of both wrists History of colonoscopy Family History Father Family history of diabetes mellitus Mother Family history of diabetes mellitus Brother Cancer Prostate Social History Smoking Status: Never smoker Tobacco Type: Cigarettes Second Hand Exposure: No; Do You Dip or Chew Tobacco: No; Hx Alcohol Use: No Hx Substance Use: No Preferred Language: Icelandic Communication Ability: Effective Visual Impairment: No Limitations Hearing Ability: Hard of Hearing [employer] Required: No Beliefs That Will Affect Care: Spiritual marital status: Single Current Living Situation: Family Current Living Situation Comment: lives with brother Feels Safe at Home: Yes Diet: regular during the past year weight has: remained stable Assistive Devices: Cane and Walker Review of Systems Review of Systems: All systems reviewed and are unremarkable except as noted below Physical Exam Physical Exam: Lying in bed without any acute distress Constitutional: well developed, well nourished and + ill appearing Eyes: PERRL, conjunctivae normal, anicteric sclerae ENMT: external ear and nose normal, oropharynx normal Neck: trachea midline, no thyromegaly Respiratory: no respiratory distress Auscultation: lungs clear to auscultation bilaterally Cardiovascular: Rate/Rhythm: regular rate and regular rhythm; not tachycardic Heart Sounds: normal S1 and normal S2; no murmur Extremities: no edema Gastrointestinal (Abdomen): Inspection/Auscultation: normal bowel sounds; abdomen not distended Percussion/Palpation: abdomen soft; abdomen nontender Musculoskeletal: No acute arthritis involving any of the joint Neurologic: normal touch/pain/proprioception and moves all extremities; no focal motor deficits Lymphatic: no cervical or axillary lymphadenopathy Results & Data Results & Data Vital Signs (Past 12 Hours) Vital Signs Temp Pulse Pulse Resp BP BP Pulse Ox 04/10/25 18:26 80 18 114/75 96 04/10/25 17:14 80 04/10/25 16:31 36.8 C 88 20 117/74 97 O2 Del Method 04/10/25 18:26 Room Air 04/10/25 17:14 04/10/25 16:31 Room Air Laboratory Results Short CBC 04/10/25 Range/Units 16:44 WBC 13.22 H (4.8-10.8) K/ul Hgb 13.5 L (14.0-18.0) g/dl Hct 39.2 L (42.0-52.0) % Plt Count 217 (130-400) K/uL BMP 04/10/25 16:44 Sodium 137 Potassium 3.7 Chloride 103 Carbon Dioxide 25 BUN 16 Creatinine 0.81 Glucose 128 H Calcium 9.3 Liver Function 04/10/25 Range/Units 16:44 Total Bilirubin 0.6 (0.2-1.0) mg/dl AST 22 (13-39) U/L ALT 28 (7-52) U/L Alkaline Phosphatase 60 (34-104) U/L Albumin 4.0 (3.4-5.0) gm/dl Urine 04/10/25 Range/Units 17:45 Urine Color Yellow Urine Appearance Turbid A (Clear) Urine pH 6.0 (4.5-7.5) Ur Specific [place] 1.025 (1.000-1.030) Urine Protein 3+ H (Negative) Urine Glucose (UA) Negative (Negative) Medications Administered Current Inpatient Medications Enoxaparin Sodium (Enoxaparin Inj 40 Mg/0.4 Ml Syr) 40 mg SQ QAM [facility] Stop: 05/10/25 19:14 Code Status & VTE Plan VTE Prophylaxis Plan VTE Prophylaxis will be ordered: Yes
[2025-04-10] MEDS: ENOXAPARIN INJ 40 MG/0.4 ML SYR SQ SCH (20:04)
[2025-04-11] MEDS: CEFEPIME 2000MG 2,000 MG/20 ML SYR IV SCH (01:45)
[2025-04-11] MEDS ORDERED: ACETAMINOPHEN 500 MG TAB PO PRN (02:21)
[2025-04-11] MEDS ORDERED: FAMOTIDINE 20 MG TAB PO PRN (02:21)
[2025-04-11] MEDS ORDERED: MELATONIN 3 MG TAB PO PRN (02:34)
[2025-04-11 06:56] LABS: Hematocrit (blood only) 35.3 % (42.0-52.0); Hemoglobin 12.3 g/dl (14.0-18.0); Immature Granulocytes # (auto) 0.04 K/uL (0.01-0.20); Immature Granulocytes % (auto) 0.5 %; Mean Corpuscular Hemoglobin 33.7 pg (25.0-34.0); Mean Corpuscular Volume 96.7 fL (80.0-100.0); Platelet Count 204 K/uL (130-400); RDW Standard Deviation 44.8 fL (36.4-46.3); Red Blood Count 3.65 M/uL (4.70-6.10); White Blood Count 7.57 K/ul (4.8-10.8)
[2025-04-11 07:38] LABS: Alanine Aminotransferase 24.0 U/L (7-52); Albumin Globulin Ratio 1.1 (0.9-2); Alkaline Phosphatase 49.0 U/L (34-104); Anion Gap 6.0 (3-11); Bilirubin,Total 0.8 mg/dl (0.2-1.0); Blood Urea Nitrogen 14.0 mg/dl (6-23); Calcium 8.7 mg/dl (8.6-10.3); Carbon Dioxide 25.0 mmol/L (21-32); Chloride 109.0 mmol/L (98-107); Creatinine Clr Calc Pharmacy 113.6 ml/min; Globulin 3.0 gm/dl (2.5-4.0); Glucose 106.0 mg/dl (70-99(Fasting)); Magnesium 2.2 mg/dl (1.7-2.4); Potassium 3.7 mmol/L (3.5-5.1); Sodium 140.0 mmol/L (136-145); Total Protein 6.4 gm/dl (6.0-8.3)
[2025-04-11] MEDS: OMEGA-3 (PURIFIED FISH OIL) 1 GM CAP PO SCH (09:07)
[2025-04-11] MEDS: TAMSULOSIN HCL 0.4 MG CAP PO SCH (09:07)
[2025-04-11] MEDS: CHOLECALCIFEROL 25 MCG (1000 UNITS) TAB PO SCH (09:07)
[2025-04-11] MEDS: PSYLLIUM HUSK 4GM PACKET PO SCH (09:07)
[2025-04-11] MEDS: CALCIUM 600MG + VIT D 400 IU TAB PO SCH (09:07)
[2025-04-11 09:54] VITALS: BP 132/82; PULSE 77; RESP 18; TEMP 97.9; O2SAT 99
[2025-04-11] MEDS: PIMAVANSERIN TARTRATE 34 MG PO SCH (09:54)
--- NOTE | 2025-04-11 11:48 | Discharge Summary ---
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 Urine noted to be darker in color as well. No fever and/or chills. No nausea no vomiting. Noted to be afebrile in the emergency room with minimally elevated white count of 13,000 and UA suggestive of infection. He was started with intravenous ceftriaxone and was admitted to medical floor for continued care. Admission Exam Per Admitting Provider Physical Exam: Lying in bed without any acute distress Constitutional: well developed, well nourished and + ill appearing Eyes: PERRL, conjunctivae normal, anicteric sclerae ENMT: external ear and nose normal, oropharynx normal Neck: trachea midline, no thyromegaly Respiratory: no respiratory distress Auscultation: lungs clear to auscultation bilaterally Cardiovascular: Rate/Rhythm: regular rate and regular rhythm; not tachycardic Heart Sounds: normal S1 and normal S2; no murmur Extremities: no edema Gastrointestinal (Abdomen): Inspection/Auscultation: normal bowel sounds; abdomen not distended Percussion/Palpation: abdomen soft; abdomen nontender Musculoskeletal: No acute arthritis involving any of the joint Neurologic: normal touch/pain/proprioception and moves all extremities; no focal motor deficits Lymphatic: no cervical or axillary lymphadenopathy Principal Diagnosis Acute UTI Dementia Discharge Exam Constitutional: WD/WN, vitals as above, NAD, sitting up in bed, pleasant, conversing easily Respiratory: normal respiratory effort, lungs clear to auscultation, no wheeze, rales, rhonchi. Normal insp/exp effort, no accessory muscle use Cardiovascular: RRR, no murmur, no edema Vessels: no JVD or carotid bruit Chest: normal inspection of chest Abdomen: normal bowel sounds, soft, nontender, no hepatosplenomegaly Musculoskeletal: no cyanosis or clubbing, extremities motor strength 5/5 Skin: no rashes, warm and dry normal turgor Neurologic: PERRL, EOMI, accommodation nl, no face palsy, no dysarthria CN's II- XI intact bilaterally and moves all extremities Psychiatric: A+Ox3, euthymic affect Discharge Data Allergies Allergy/AdvReac Type Severity Reaction Status Date / Time quetiapine [From Seroquel] AdvReac Severe PSYCHOSIS Verified 04/10/25 18:02 aspirin AdvReac Intermediate Nose Bleed Verified 04/10/25 18:02 diclofenac AdvReac Intermediate STOMACH Verified 04/10/25 18:02 PAIN lisinopril AdvReac Intermediate Cough Verified 04/10/25 18:02 naproxen AdvReac Intermediate BLEEDING Verified 04/10/25 18:02 FROM RECTUM Consultations 04/10/25 18:38 ED Decision to Admit Stat Ordered Studies 04/10/25 17:07 CT head/brain wo con Stat Hospital Course (1) Acute metabolic encephalopathy: (2) Acute UTI: (3) Chronic indwelling Fontanez catheter: B1 due to prostate cancer (4) Prostate cancer: (5) Hyperlipidemia: Seen (6) BPH (benign prostatic hyperplasia): (7) Lewy body dementia: Plan Patient was brought to the hospital due to concern of more weakness and confusion. Urinalysis suggestive of UTI; has chronic Fontanez catheter; likely colonization Patient was admitted to medical floor; he was started on antibiotics, IV fluids. Patient was more delirious overnight and required restraints as he became combative. His mentation improved in the morning. He did not have any other signs of UTI including fever, chills, abdominal pain. He was given 7 days of antibiotics and was discharged home with his brother to prevent further hospital-acquired delirium. Please note the above document was generated using voice recognition software. It may contain grammatical, syntax or spelling errors. Any formal questions or concerns about the content, text or information contained within the body of this dictation should be directly addressed to the provider for clarification Total Time Total Time Spent Total Time Spent (In Minutes): 45 Total Time Includes: Examination of the Patient, Discharge Planning, Medication Reconciliation, Communication With Other Providers and Other Discharge Plan Discharge Items Patient Disposition: Home - Self-Care Reason For Visit: RECURRENT UTI, CHANGE IN MENTAL STATUS Discharge Diagnosis: AMS Condition on Discharge: Fair Activity: Resume your previous activity Non-emergency contact: Primary Care Provider Call non-emergency contact if: you have any medication questions and your symptoms worsen Follow-up/Referrals: Chema Lackey MD [Primary Care Provider] - Diet: Regular Addtl Attending Provider Instructions: You were admitted to the hospital with possible UTI. You are prescribed antibiotics for 7 days. Please follow up with urology for trial of void Pending Studies at Discharge: No Stand-Alone Forms: My [facility], Smoking Cessation Medications and DC Order Prescriptions: New amoxicillin-pot clavulanate 875-125 mg tablet 1 tab PO BID 7 Days Qty: 14 0RF Continued Metamucil 3.4 gram/5.4 gram powder 1 tbsp PO DAILY Rx Instructions: mix into at least 8 oz of water or juice before administering melatonin 10 mg capsule 10 mg PO HS PRN (Reason: Sleep) famotidine [Pepcid] 20 mg Tablet 20 mg PO BID PRN (Reason: Heartburn) omega 1-htm-uoe-fish oil [Fish Oil] 1,000 mg (120 mg-180 mg) Capsule 3 cap PO QAM tamsulosin 0.4 mg capsule 0.4 mg PO DAILY calcium carbonate-vitamin D3 [Calcium 600 + D(3)] 600 mg-10 mcg (400 unit) Tablet 1 tab PO QAM acetaminophen [Tylenol Extra Strength] 500 mg Tablet 500 mg PO Q6H PRN (Reason: PAIN/FEVER) cholecalciferol (vitamin D3) [Vitamin D3] 50 mcg (2,000 unit) Capsule 50 mcg PO DAILY Nuplazid 34 mg capsule 34 mg PO QAM Rx Instructions: PT'S FAMILY WILL BRING IN MED IF ADMITTED, D/T SPECIALITY MED. lidocaine 4 % Aerosol,[place] 1 spray TOPICAL QID PRN (Reason: Pain) Discharge Orders: Discharge Order (Routine); Ordered 04/11/25 Ordered By: Ant Vital Admission Data Admit Date/Time: 04/10/25 19:04 Attending Provider: Ant Vital Admit Provider: Paul Cesar Primary Care Provider: Chema Lackey Other Providers: Paul Cesar Other Interventions: Discharge Summary Assessment (RN) Last Done: 04/11/25 10:39
[2025-04-11] MEDS ORDERED: DAPTOmycin 600 MG in SYRINGE 0 ML IV SCH (18:30)
--- NOTE | 2025-04-12 15:30 | Electrocardiogram Report ---
Test Reason : Blood Pressure : */* mmHG Vent. Rate : 81 BPM Atrial Rate : 81 BPM P-R Int : 164 ms QRS Dur : 82 ms QT Int : 396 ms P-R-T Axes : 42 5 25 degrees QTcB Int : 460 ms Normal sinus rhythm Early transition Otherwise Normal ECG When compared with ECG of 26-Feb-2025 01:57, No significant change was found Confirmed by Farshad Flowers ([id number]) on 04/12/2025 3:30:19 PM Referred By: REFERRED SELF Confirmed By: Farshad Flowers
== END 2025-04-11 10:50 | disposition home or self-care (01) | DRG 71 ==
LOC: ED 16:27 → SUATTDRO 19:04 → 2N 19:04